=== PATIENT | male | born 1940 | race African-American/Black ===

== ENCOUNTER 2016-12-03 15:14 | Emergency (ER) | payer OTHER ==
[2016-12-03 15:21] VITALS: BP 139/72
[2016-12-03 16:08] LABS: MANUAL DIFF NEEDED? NO
--- NOTE | 2016-12-03 16:11 | PROVIDER DOCUMENTATION ---
HPI-Syncope/Dizziness - General Chief Complaint: Dizziness Stated Complaint: DIZZINESS Time Seen by Provider: 12/03/16 15:25 Source: patient, family Allergies/Adverse Reactions: Patient Allergies Allergy/AdvReac Type Severity Reaction Status Date / Time No Known Allergies Allergy Verified 09/17/15 12:55 Home Medications: Home Medication List Medication Instructions Recorded Confirmed Last Taken Type Megestrol Acetate 40 mg PO DAILY 09/19/15 09/19/15 09/18/15 History 40mg Oxybutynin E.r. [Ditropan Xl] 10 mg PO DAILY 09/19/15 09/19/15 09/18/15 History 10mg Tamsulosin [Flomax] 0.4 mg PO QHS #30 capsule 10/22/15 Unknown Rx Omeprazole 20 mg PO DAILY #30 tablet. 05/06/16 Unknown Rx Meclizine [Antivert] 12.5 mg PO TID #60 tablet 11/07/16 Unknown Rx - History of Present Illness-Syncope/Dizzy Nature of Presenting Problem: 76 y/o AAM with a PMHx of HTN that presents to the ED with a 2-3 month h/o dizziness. Pt reports 4 previous workups for this issue. States that he has intermittent lightheadedness. No alleviating or aggravating factors. Denies any motor or sensory deficits. Recently Seen Here or By Another Healthcare Provider: No Review of Systems - Adult - REVIEW OF SYSTEMS - ADULT Constitutional: reports: no symptoms reported Eyes: reports: no symptoms reported Ears, Nose, Mouth & Throat: reports: no symptoms reported Cardiovascular: reports: no symptoms reported Respiratory: reports: no symptoms reported Gastrointestinal: reports: no symptoms reported Genitourinary: reports: no symptoms reported Musculoskeletal: reports: no symptoms reported Integumentary: reports: no symptoms reported Neurological: reports: dizziness/vertigo Psychiatric: reports: no symptoms reported Endocrine: reports: no symptoms reported Hematologic/Lymphatic: reports: no symptoms reported Allergic/Immunologic: reports: no symptoms reported Past History - Adult - PAST MEDICAL HISTORY-ADULT Review of Records: reports: Old Records Reviewed, Nursing Assessment Review, Medications Reviewed Major Childhood Illnesses: reports: denies history Cardiovascular: reports: HTN Gastrointestinal: reports: GI bleed, polyps Genitourinary: reports: prostate cancer, other (bph) Other Conditions: reports: denies history - PRIOR SURGERIES/PROCEDURES Surgical/Procedure History: reports: hernia repair, orthopedic (extremity) ( foot surgery), other (stomach tumor right great toe bunion removal) - PRIOR HOSPITALIZATIONS Prior Hospitalizations: reports: none - IMMUNIZATION STATUS Childhood Immunizations: See Nurse Assessment Flu Vaccine: See Nurse Assessment - FAMILY HISTORY Family History: reviewed, not pertinent - SOCIAL HISTORY Smoking: cigarettes, less than 1 pack/day Substance Use: alcohol Alcohol Use Frequency: once a week Number of drinks per typical drinking period:: 2 drinks Living Situation: family Physical Exam-General - PHYSICAL EXAM-ADULT Initial Vital Signs Reviewed: Yes - CONSTITUTIONAL General Appearance: appears well, alert, no apparent distress. negative: lethargic, slow to respond - EYES Eyes: PERRL/EOMI, pink conjunctivae. negative: sclera injected, scleral icterus - HEAD, EARS, NOSE, MOUTH & THROAT HENMT: normocephalic/atraumatic, moist mucous membranes, normal ENT inspection. negative: pharyngeal erythema, tonsillar exudate - NECK Neck: non-tender, full range of motion, supple. negative: C-spine tenderness - RESPIRATORY Respiratory: chest non-tender, lungs clear, normal breath sounds. negative: crackles, rales, rhonchi, stridor, wheezing - CARDIOVASCULAR Cardiovascular: normal peripheral pulses, regular rate, rhythm, no murmur - CHEST (BREASTS) Chest/Breast: no tenderness - GASTROINTESTINAL (ABDOMEN) Abdominal Exam: normal bowel sounds, non tender, soft. negative: guarding, rigid, rebound, tenderness - GENITOURINARY Male Genitalia: deferred Rectal Exam: deferred - LYMPHATIC Lymphatic: no adenopathy - MUSCULOSKELETAL Back Exam: negative: no CVA tenderness, muscle spasm Extremity: normal range of motion, non-tender - SKIN Integumentary: normal color, normal turgor, warm/dry - NEUROLOGIC Neurologic: grossly normal, no motor/sensory deficits. negative: facial droop, focal weakness, motor weakness, sensory deficit - PSYCHIATRIC Psych/Mental Status: normal mood/affect, normal thought content, normal thought process, oriented x 3, disoriented x 3 Progress - PLAN OF CARE/RESULTS Progress/Plan/Lab Results: Laboratory Tests 12/03/16 12/03/16 12/03/16 16:02 16:02 16:02 WBC 7.12 RBC 4.01 L Hgb 12.7 L Hct 36.6 L MCV 91.3 MCH 31.7 H MCHC 34.7 RDW Std Deviation 12.7 Plt Count 288 MPV 8.1 Immature Gran % (Auto) 0.1 Neut % (Auto) 54.2 Lymph % (Auto) 30.3 [place] % (Auto) 6.3 Eos % (Auto) 8.8 Baso % (Auto) 0.3 Immature Gran # (Auto) 0.01 Neut # (Auto) 3.85 Lymph # (Auto) 2.16 [place] # (Auto) 0.45 Eos # (Auto) 0.63 Baso # (Auto) 0.02 Sodium 131 L Potassium 3.5 Chloride 99 Carbon Dioxide 16 L Anion Gap 15 BUN 16 Creatinine 1.0 Estimated GFR/1.73 m2 > 60 BUN/Creatinine Ratio 16 Glucose 130 H Calculated Osmolality 266 Calcium 9.4 Total Bilirubin 0.20 AST 13 ALT 10 Alkaline Phosphatase 41 Troponin T < 0.010 Total Protein 7.2 Albumin 4.3 Globulin 3.0 Albumin/Globulin Ratio 1.0 Orders Category Date Time Status CHEST-PORTABLE [RAD] Stat Exams 12/03/16 15:47 Taken HEAD W/O CONTRAST [CT] Stat Exams 12/03/16 16:07 Taken CBC WITH ELECTRONIC DIFF [HEME] Stat Lab 12/03/16 16:02 Completed COMPREHENSIVE METABOLIC PANEL [CHEM] Stat Lab 12/03/16 16:02 Completed TROPONIN T Stat Lab 12/03/16 16:[address] W/POSS RFLX CULT [URINALYSIS] Stat Lab 12/03/16 15:57 Ordered Vital Signs - 24 hr 12/03/16 15:16 Temperature 98 F Pulse Rate 90 Respiratory 18 Rate Blood Pressure 139/72 O2 Sat by Pulse 99 Oximetry - XRAY 1 XRAY Study: Chest Impression: Normal XRAY Interpretation: no acute process - CT/MRI 1 CT Study: Head Impression: Abnormal Comparison with other Films: no changes CT Results: no bleed. chronic ischemic changes. atrophy Departure - Departure Time of Disposition Order: 16:50 DIAGNOSIS: Vertigo Disposition: HOME 01 Certified Medical Emergency: Emergent Condition: Good Additional Instructions: PT TO FOLLOW UP AT PCP FOR POSSIBLE REFERRAL TO NEUROLOGIST. ED Follow Up Instructions: You have been treated by a care provider in the Emergency Department. These instructions are being provided to you so you can have an understanding of how to care for yourself upon discharge. Upon discharge from the Emergency Department, you are responsible for making arrangements for follow-up care by a physician of your choice. Take all prescribed medications as directed. Return to the Emergency Department immediately for any new or worsening symptoms. You may call the Physician Referral phone number at [phone] to obtain a list of Physicians who are taking new patients.
[2016-12-03 16:19] LABS: BASO% 0.3 % (0.0-0.8); EOS# 0.63 X1000 (0.0-0.7); EOS% 8.8 % (0.0-10.0); HEMATOCRIT 36.6 % (42.0-52.0); HEMOGLOBIN 12.7 g/dL (14.0-18.0); IMM GRAN# 0.01 X1000 (0.0-0.04); IMM GRAN% 0.1 % (0.0-0.5); LYMPH# 2.16 X1000 (1.2-3.4); LYMPH% 30.3 % (20.5-51.1); MCH 31.7 PG (27-31); MCHC 34.7 g/dL (33-37); MCV 91.3 FL (81-99); MONO# 0.45 X1000 (0.11-0.59); MONO% 6.3 % (1.7-9.3); MPV 8.1 FL (7.4-10.4); NEUT% 54.2 % (42.2-75.2); PLT 288 X1000 (130-400); RBC 4.01 XMIL (4.7-6.1)
[2016-12-03 16:28] LABS: AGAP 15; ALBUMIN 4.3 g/dL (3.5-5.0); ALKALINE PHOSPHATASE 41 U/L (32-122); BUN 16 mg/dL (8-22); CALCIUM 9.4 mg/dL (8.8-10.2); CHLORIDE 99 mmol/L (98-107); COSMO 266; GOT 13 U/L (10-34); GPT 10 U/L (10-44); POTASSIUM 3.5 mmol/L (3.5-5.1); SODIUM 131 mmol/L (136-145); TCO2 16 mmol/L (25-35); TOTAL PROTEIN 7.2 g/dL (6.3-8.3)
--- NOTE | 2016-12-03 16:55 | Diag Imaging Result Document ---
PROCEDURE NAME: CHEST-PORTABLE - 12/03/2016 CHEST, SINGLE VIEW: COMPARISON: 08/08/2016. FINDINGS: The lungs are well expanded. The heart is not enlarged. The vessels are not distended. No pneumonia. No pleural effusions identified. IMPRESSION: Negative chest.
--- NOTE | 2016-12-03 16:58 | Diag Imaging Result Document ---
PROCEDURE NAME: HEAD W/O CONTRAST - 12/03/2016 CT BRAIN WITHOUT CONTRAST: COMPARISON: 04/14/2016. FINDINGS: No parenchymal hemorrhage. No epidural or subdural hematoma. No subarachnoid hemorrhage. There is atrophy with mild chronic microvascular ischemic changes. I do not identify a mass on this noncontrasted study. No hydrocephalus. No sinus opacification. IMPRESSION: 1. No hemorrhage. 2. Atrophy with mild chronic microvascular ischemic changes. A preliminary report was given at 4:33 p.m..
== END 2016-12-03 16:58 | disposition home or self-care (01) ==
LOC: P.ED 15:14
DX: R42 Dizziness and giddiness (principal); R94.09 Abnormal results of other function studies of central nervous system; I10 Essential (primary) hypertension; F17.210 Nicotine dependence, cigarettes, uncomplicated; Z79.899 Other long term (current) drug therapy; Z85.46 Personal history of malignant neoplasm of prostate; Z87.19 Personal history of other diseases of the digestive system
CPT/HCPCS: 70450; 71010; 80053; 84153; 84484; 85025

== ENCOUNTER 2017-03-16 14:58 | Inpatient (IN) ==
[2017-03-16] MEDS ORDERED: PROTONIX IV ONE (15:24)
[2017-03-16] MEDS ORDERED: SODIUM CHLORIDE 0.9% INJ ONE (15:24)
[2017-03-16] MEDS ORDERED: NS 1,000 ML IV ONE (15:24)
[2017-03-16 15:34] LABS: MANUAL DIFF NEEDED? NO
[2017-03-16 16:11] LABS: AGAP 12; ALBUMIN 4.2 g/dL (3.5-5.0); ALKALINE PHOSPHATASE 42 U/L (32-122); AMYLASE 72 U/L (20-200); BUN 11 mg/dL (8-22); CALCIUM 8.8 mg/dL (8.8-10.2); CHLORIDE 103 mmol/L (98-107); COSMO 276; GOT 12 U/L (10-34); GPT 8 U/L (10-44); LIPASE 45 U/L (13-60); POTASSIUM 3.7 mmol/L (3.5-5.1); SODIUM 138 mmol/L (136-145); TCO2 23 mmol/L (25-35); TOTAL PROTEIN 6.8 g/dL (6.3-8.3)
[2017-03-16 16:21] LABS: OCCULT BLOOD 1 POSITIVE (NEGATIVE)
--- NOTE | 2017-03-16 16:22 | EKG Report ---
Test Performed on : 03/16/2017 4:18:10 PM Test Reason : Dizziness Blood Pressure : / mmHG Vent. Rate : 068 BPM Atrial Rate : 068 BPM P-R Int : 168 ms QRS Dur : 066 ms QT Int : 418 ms P-R-T Axes : 053 042 -68 degrees QTc Int : 444 ms Normal sinus rhythm. Voltage criteria for left ventricular hypertrophy T wave abnormality, consider inferior ischemia Abnormal ECG When compared with ECG of 08-AUG-2016 14:31, Nonspecific T wave abnormality has replaced inverted T waves in Lateral leads Unconfirmed Result
[2017-03-16 16:26] LABS: BILIRUBIN URINE NEGATIVE (NEGATIVE); BLOOD URINE 1+ (NEGATIVE); CLARITY CLEAR (CLEAR); COLOR YELLOW; GLUCOSE URINE NEGATIVE (NEGATIVE); LEUKOCYTES URINE NEGATIVE (NEGATIVE); NITRITE URINE NEGATIVE (NEGATIVE); PH URINE 6.5; PROTEIN URINE TRACE mg/dL (NEGATIVE); SP GRAVITY URINE 1.015; UROBILINOGEN URINE 1+(1 mg/dL)
[2017-03-16 16:27] LABS: URINE CAST NONE SEEN /LPF; URINE CRYSTAL NONE SEEN /HPF; URINE EPITHELIAL CELLS >10 /HPF (<10); URINE RBC <10 /HPF (<10); URINE SOURCE CLEAN CATCH
[2017-03-16 16:33] LABS: INR 0.99 (0.86-1.15); PROTIME 13.4 Seconds (12.1-15.5)
[2017-03-16 16:37] LABS: URINE CULTURE PL NEEDED? NO; URINE WBC <10 /HPF (<10)
[2017-03-16 17:24] LABS: BASO% 0.5 % (0.0-0.8); EOS# 0.51 X1000 (0.0-0.7); EOS% 7.9 % (0.0-10.0); HEMATOCRIT 35.3 % (42.0-52.0); HEMOGLOBIN 11.6 g/dL (14.0-18.0); IMM GRAN# 0.01 X1000 (0.0-0.04); IMM GRAN% 0.2 % (0.0-0.5); LYMPH# 1.33 X1000 (1.2-3.4); LYMPH% 20.6 % (20.5-51.1); MCH 32.7 PG (27-31); MCHC 32.9 g/dL (33-37); MCV 99.4 FL (81-99); MONO# 0.53 X1000 (0.11-0.59); MONO% 8.2 % (1.7-9.3); MPV 8.6 FL (7.4-10.4); NEUT% 62.6 % (42.2-75.2); PLT 330 X1000 (130-400); RBC 3.55 XMIL (4.7-6.1)
--- NOTE | 2017-03-16 17:34 | PROVIDER DOCUMENTATION ---
This chart was entered by Shannan Carreno Scribe, acting as scribe for Iona Moran MD. HPI-General Adult - General Chief Complaint: Dizziness Stated Complaint: "WATER ON HEAD,BLOOD IN STOOL" Time Seen by Provider: 03/16/17 15:23 Source: patient Allergies/Adverse Reactions: Patient Allergies Allergy/AdvReac Type Severity Reaction Status Date / Time No Known Allergies Allergy Verified 09/17/15 12:55 Home Medications: Home Medication List Medication Instructions Recorded Confirmed Last Taken Type Megestrol Acetate 40 mg PO DAILY 09/19/15 09/19/15 09/18/15 History 40mg Oxybutynin E.r. [Ditropan Xl] 10 mg PO DAILY 09/19/15 09/19/15 09/18/15 History 10mg Tamsulosin [Flomax] 0.4 mg PO QHS #30 capsule 10/22/15 Unknown Rx Omeprazole 20 mg PO DAILY #30 tablet. 05/06/16 Unknown Rx Meclizine [Antivert] 12.5 mg PO TID #60 tablet 11/07/16 Unknown Rx - History of Present Illness -Gen Adult Nature of Presenting Problems: 76 yo M presents to the ER with complaint of dizziness and bright red blood in stool this morning. Denies being in any pain. States he took an iron pill yesterday. States he has been dizzy for about 6 months. Onset/Duration: reports: this morning Associated Symptoms: reports: dizziness. denies: diarrhea, nausea, weakness Review of Systems - Adult - REVIEW OF SYSTEMS - ADULT Constitutional: denies: chills, fever Eyes: reports: no symptoms reported Ears, Nose, Mouth & Throat: reports: no symptoms reported Cardiovascular: denies: chest pain, palpitations Respiratory: denies: cough, shortness of breath Gastrointestinal: reports: rectal bleeding. denies: diarrhea, nausea, vomiting Genitourinary: reports: no symptoms reported Musculoskeletal: reports: no symptoms reported Integumentary: reports: no symptoms reported Neurological: reports: dizziness/vertigo. denies: headache/migraines Psychiatric: reports: no symptoms reported Endocrine: reports: no symptoms reported Hematologic/Lymphatic: reports: no symptoms reported Allergic/Immunologic: reports: no symptoms reported All Other Systems: Reviewed and Negative Past History - Adult - PAST MEDICAL HISTORY-ADULT Review of Records: reports: Nursing Assessment Review, Medications Reviewed Cardiovascular: reports: HTN Gastrointestinal: reports: GI bleed, polyps Genitourinary: reports: prostate cancer, other (bph) - PRIOR SURGERIES/PROCEDURES Surgical/Procedure History: reports: hernia repair, orthopedic (extremity) ( foot surgery), other (stomach tumor right great toe bunion removal) - PRIOR HOSPITALIZATIONS Prior Hospitalizations: reports: none - IMMUNIZATION STATUS Childhood Immunizations: See Nurse Assessment Flu Vaccine: See Nurse Assessment Physical Exam-General - PHYSICAL EXAM-ADULT Initial Vital Signs Reviewed: Yes - CONSTITUTIONAL General Appearance: alert, no apparent distress - EYES Eyes: PERRL/EOMI, pink conjunctivae - HEAD, EARS, NOSE, MOUTH & THROAT HENMT: normocephalic/atraumatic, normal ENT inspection - NECK Neck: supple, normal inspection - RESPIRATORY Respiratory: no respiratory distress, no accessory muscle use - CARDIOVASCULAR Cardiovascular: normal peripheral pulses, regular rate, rhythm - GASTROINTESTINAL (ABDOMEN) Abdominal Exam: normal bowel sounds, non tender, soft - GENITOURINARY Rectal Exam: normal rectal tone, other (maroon colored blood) - LYMPHATIC Lymphatic: no adenopathy. negative: axilla node tender - MUSCULOSKELETAL Back Exam: no CVA tenderness, no vertebral tenderness Extremity: normal gait, normal inspection - SKIN Integumentary: normal color, warm/dry - NEUROLOGIC Neurologic: grossly normal, no motor/sensory deficits - PSYCHIATRIC Psych/Mental Status: normal mood/affect, normal thought content, normal thought process, oriented x 3 Progress - PLAN OF CARE/RESULTS Progress/Plan/Lab Results: Vital Signs - 8 hr 03/16/17 15:03 03/16/17 15:17 Temperature 98.4 F Pulse Rate 96 H Pulse Rate [Sitting] 84 Pulse Rate [Standing] 90 Pulse Rate [Supine] 80 Respiratory Rate 18 Blood Pressure 173/97 Blood Pressure [Sitting] 157/104 Blood Pressure [Standing] 176/114 Blood Pressure [Supine] 173/104 O2 Sat by Pulse Oximetry 99 Orders Category Date Time Status Saline Loc DIRECTED Care 03/16/17 15:24 Active NPO Diet 03/16/17 15:24 Active HEAD W/WO CONTRAST [CT] Stat Exams 03/16/17 15:24 Ordered AMYLASE [CHEM] Stat Lab 03/16/17 15:24 Ordered CBC WITH ELECTRONIC DIFF [HEME] Stat Lab 03/16/17 15:24 Ordered COMPREHENSIVE METABOLIC PANEL [CHEM] Stat Lab 03/16/17 15:24 Ordered LIPASE [CHEM] Stat Lab 03/16/17 15:24 Ordered OCCULT BLOOD SCREEN STOOL PL Stat Lab 03/16/17 15:24 Uncollected PRO B-NATRIURETIC PEPTIDE Stat Lab 03/16/17 15:[address]IME WITH INR [address] [COAG] Stat Lab 03/16/17 15:[address] [COAG] Stat Lab 03/16/17 15:24 Ordered TROPONIN T Stat Lab 03/16/17 15:[address] W/POSS RFLX CULT [URINALYSIS] Stat Lab 03/16/17 15:24 Uncollected 0.9% Sodium Chloride Inj [Ns] 1,000 ml Med 03/16/17 15:24 Active IV 999 mls/hr Pantoprazole [Protonix] Med 03/16/17 15:24 Discontinued 40 mg IV NOW ONE Sodium Chloride 0.9% Med 03/16/17 15:24 Discontinued 10 ml INJ NOW ONE EKG [EKG] Stat Ther 03/16/17 15:24 Ordered Result Diagrams: 03/16/17 17:20 03/16/17 15:15 - EKG 1 Time of EKG reading by physician:: 16:18 EKG Read and Signed by:: Iona Moran EKG Interpretation (*Must complete 3 of following elements*): Abnormal Rate: 68 Rhythm: normal sinus rhythm [place]: normal QRS: LVH (voltage criteria) [place] Interval: normal ST Wave: normal Comments: t wave abnormality, consider inferior ischemia - CONSULTS/PCP/HOSPITALIST Notification #1 *Consult/PCP/Hospitalist*: Dr. Damir aragon Time Discussed: 17:32 Reason/Comments: Suggested to admit to [facility]. [facility] hospitalist called. Consult Disposition: Admit - CHANGE OF SHIFT REPORT (ED Provider) Report Given and Care Transferred to:: Dr. Marcum Time of Transfer: 18:00 Items Pending: Physician Consult/Arrival, Other (Pending dispo - admit to [facility]) Departure - Departure Date of Disposition Decision: 03/16/17 Time of Disposition Decision: 17:33 DIAGNOSIS: Lower GI bleed Disposition: ADMITTED INPATIENT 09 Certified Medical Emergency: Emergent Condition: Stable Referrals and Follow-Ups: Jay Weiss MD [Primary Care Provider] - - Critical Care Note This patient required my direct & personal management of CC.: No This chart was documented by the indicated scribe, (Shannan Carreno Scribe) and accurately reflects the services I performed and decisions made by me, Iona Moran MD, as attested by the provider's signature.
[2017-03-16] MEDS ORDERED: ZOFRAN IV PRN (20:13)
[2017-03-16] MEDS ORDERED: TYLENOL PO PRN (20:13)
[2017-03-16 21:27] LABS: RETIC% 1.89 % (0.8-2.1)
[2017-03-16 21:28] LABS: HEMATOCRIT 32.9 % (42.0-52.0); HEMOGLOBIN 10.7 g/dL (14.0-18.0)
--- NOTE | 2017-03-16 21:39 | HISTORY AND PHYSICAL ---
PRIMARY CARE PHYSICIAN: Jay Weiss MD. REASON FOR ADMISSION: Hematochezia. HISTORY OF PRESENT ILLNESS: Matthew Dennison is a 76-year-old man with a past medical history of diverticulosis, prostate cancer, hypertension who is complaining of a 2-3 week history of postural dizziness. He also says he lost about 10 pounds in the last 1 year which is unintentional. He comes in today primarily because he had 2 episodes of bright red hematochezia without any clots. No antecedent or subsequent melanotic stools were noted. No nausea, vomiting, abdominal pain. He says his postural lightheadedness got worse and he got concerned and went to [facility] to be evaluated. While he was blood work was drawn and they realized that patient was a little symptomatic, i.e. orthostatic and decided to get him transferred to our facility for GI evaluation. The patient denies any fever, chills or cardiorespiratory complaints other than a chronic dry cough which occurs at night. He denies any leg swelling, PND or orthopnea. He denies any genitourinary complaints except for infrequent urinary hesitancy. No hematuria. No bleeding from any orifice. No dysuria. No focal neurological complaints. REVIEW OF SYSTEMS: Twelve systems is negative except positive findings as per HPI. He denies any use of NSAIDs except for baby aspirin which he takes per his physician. ALLERGIES: No known drug allergies. HOME MEDICATIONS: Have not been reconciled but the ones on file show he takes meclizine 12.5 mg p.r.n., Megace 40 mg daily, omeprazole 20 mg daily, Ditropan 10 mg daily, Flomax 0.4 mg daily. FAMILY HISTORY: No history of GI issues in the family. Only notable finding is liver disease. No diabetes or heart disease. SOCIAL HISTORY: He smokes half a pack a day. He drinks whisky maybe a shot or 2 once every couple of weeks. No illicit drug use. He is . PAST SURGICAL HISTORY: He had a ventral hernia repair and lipoma excised from his left hip. DIAGNOSTIC DATA: 1. CT scan of the head and abdomen are still pending. 2. EKG done shows a probable anteroseptal infarct with flipped T-waves in the inferior leads. No prior EKG for review to compare with. LAB WORK: PT, PTT is normal. Fecal occult blood was positive. His white count is 6,000. Hemoglobin and hematocrit 11 and 35. Platelets 330,000. BUN 11, creatinine 1.0, glucose 114, troponins negative, proBNP 361, amylase and lipase normal. Urinalysis is essentially unremarkable. PHYSICAL EXAMINATION: VITAL SIGNS: Blood pressure is 164/97, heart rate 72, respirations 18, temperature 98.4 degrees, O2 saturation is 100% on room air. GENERAL: He is a pleasant, well-nourished, elderly, man who is not in acute distress. He is alert and oriented x3. Normal mood and affect. HEENT: Normocephalic, atraumatic. PERRL, EOMI. Anicteric, not pale. ENT examination is grossly normal. NECK: Supple. No JVD, carotid bruit or thyromegaly. CHEST: Clear to auscultation. Air entry equal in both lung cesar. CARDIAC: First and second heart sounds heard. No murmurs, gallops, or rubs. Regular.. ABDOMEN: Slightly protuberant, soft, nontender. No organomegaly. Bowel sounds hypoactive. RECTAL EXAMINATION: Deferred at this time. EXTREMITIES: No edema, clubbing or cyanosis. Pulses distally intact in all extremities with good volume. NEUROLOGIC EXAMINATION: No focal deficits. SKIN: Intact. No breakdown, lesions or erythema except for a small 2 cm lipoma on the left hip. MUSCULOSKELETAL EXAMINATION: Grossly normal. ASSESSMENT: 1. Gastrointestinal bleed, probably lower gastrointestinal bleed ? diverticular. 2. Anemia ? hemorrhagic versus anemia of chronic inflammation. 3. Hypertension new onset. 4. Benign prostatic hypertrophy. 5. Tobacco use. 6. Abnormal electrocardiogram. Query significance. 7. History of prostate cancer. 8. Diverticulosis. PLAN: 1. At this time we will continue IV fluid resuscitation. Check hemoglobin and hematocrit serially q.6 hours and we will be notified if hematocrit drops below 26. Type and screen in anticipation of severe GI bleeding. 2. Consult Dr. Subramanian who is the patient's electrophonic engineer. We will notify him this evening to see if he wants the patient to be prepped for colonoscopy. 3. Repeat EKG and troponin to rule out any acute coronary event and if these are negative, patient will need to schedule outpatient cardiac evaluation. 4. Regarding patient's blood pressure, medication was switched from Flomax to Cardura to address his prostatic problems and his hypertension while ordering a PSA. 5. Smoking cessation was reiterated and start patient on a NicoDerm patch. 6. PPI to be started empirically. I suspect this could be more of a lower GI bleed. cc: Saturnino Guzman MD
[2017-03-16] MEDS: NS 1,000 ML IV SCH (21:55)
[2017-03-16] MEDS: PROTONIX IV SCH (21:55)
[2017-03-16] MEDS: NICODERM PATCH TD SCH (21:55)
[2017-03-16] MEDS: CARDURA PO SCH (21:55)
[2017-03-16] MEDS: SODIUM CHLORIDE 0.9% INJ SCH (21:55)
[2017-03-16 22:03] LABS: PSA SCREEN 0.03 ng/mL (0.00-6.22)
[2017-03-16] MEDS ORDERED: GOLYTELY PO ONE (22:03)
[2017-03-17 02:40] LABS: HEMOGLOBIN 10.2 g/dL (14.0-18.0)
--- NOTE | 2017-03-17 05:28 | EKG Report ---
Test Performed on : 03/16/2017 10:39:38 PM Test Reason : abn ekg Blood Pressure : / mmHG Vent. Rate : 062 BPM Atrial Rate : 062 BPM P-R Int : 176 ms QRS Dur : 064 ms QT Int : 388 ms P-R-T Axes : 012 036 048 degrees QTc Int : 393 ms Normal sinus rhythm. T wave abnormality, consider lateral ischemia Abnormal ECG When compared with ECG of 16-MAR-2017 16:18, (Unconfirmed) Nonspecific T wave abnormality has replaced inverted T waves in Inferior leads Inverted T waves have replaced nonspecific T wave abnormality in Lateral leads Confirmed by Javier LANGLEY, David Tejeda ([id number]) on 03/21/2017 12:36:16 PM
[2017-03-17 06:44] LABS: MANUAL DIFF NEEDED? NO
[2017-03-17 06:53] LABS: BASO% 0.2 % (0.0-0.8); EOS# 0.55 X1000 (0.0-0.7); EOS% 9.3 % (0.0-10.0); HEMATOCRIT 30.7 % (42.0-52.0); HEMOGLOBIN 10.1 g/dL (14.0-18.0); LYMPH% 21.9 % (20.5-51.1); MCH 32.7 PG (27-31); MCHC 32.9 g/dL (33-37); MCV 99.4 FL (81-99); MONO# 0.42 X1000 (0.11-0.59); MONO% 7.1 % (1.7-9.3); MPV 8.3 FL (7.4-10.4); NEUT% 61.5 % (42.2-75.2); PLT 282 X1000 (130-400); RBC 3.09 XMIL (4.7-6.1)
[2017-03-17 07:15] LABS: AGAP 12; BUN 6 mg/dL (8-22); CHLORIDE 108 mmol/L (98-107); COSMO 277; POTASSIUM 3.8 mmol/L (3.5-5.1); SODIUM 140 mmol/L (136-145); TCO2 20 mmol/L (25-35)
--- NOTE | 2017-03-17 07:31 | Diag Imaging Result Doc PS360 ---
EXAM: HEAD W/O CONTRAST HISTORY: Dizziness TECHNIQUE: CT of the head without contrast with dose reduction (clarity.) COMMENT: There is generalized cerebral atrophy. There is a calcification in the left globus pallidus. No evidence of mass effect bleed or abnormal extra-axial fluid collection is present. Compared to the previous study of 12/03/2016 there has been no significant change in the appearance of the brain. IMPRESSION: Atrophy and chronic microvascular changes. No evidence of acute disease. Electronically signed by Richie Gonzalez 03/17/2017 7:29 AM
--- NOTE | 2017-03-17 07:38 | Diag Imaging Result Doc PS360 ---
EXAM: CT ABD/PELVIS W/ IV CONT ONLY HISTORY: Rectal bleeding TECHNIQUE: CT of the abdomen with intravenous contrast and dose reduction (clarity.) COMMENT: The current study is compared with that of 05/11/2015. There are some fibrotic changes in the lung bases. There is a cyst and a granuloma in the dome of the right hepatic lobe. Small subcentimeter cysts are also seen elsewhere in the liver. Some of these were better seen on the previous study. There are numerous cysts in both kidneys the largest of which is present on the right measuring over 8.7 cm. There are atherosclerotic calcifications in the aorta. There is slight dilatation of the infrarenal abdominal aorta to a maximum dimension of 2.6 cm. There is no evidence of appendicitis. There is marked diverticulosis of the colon particularly the cecum and descending colon. There is apparently a diverticulum of the distal ileum just before the ileocecal valve which contains a fecalith. This was also demonstrated on the previous study. There is a left adrenal nodule measuring 2.8 cm which has not changed significantly in size or appearance since the previous study. There is no evidence of significant adenopathy or bowel obstruction. CT of the pelvis with intravenous contrast: There is diverticulosis throughout the sigmoid colon. There is no definite evidence of active diverticulitis. There is no evidence of free fluid. The urinary bladder is not distended. No significant adenopathy is present. The regional skeleton is stable in appearance. IMPRESSION: Diverticulosis coli and ilei. Left adrenal adenoma. No evidence of acute disease. Electronically signed by Richie Gonzalez 03/17/2017 7:36 AM
[2017-03-17] MEDS: NICODERM PATCH TD SCH (08:39)
[2017-03-17] MEDS: NS 1,000 ML IV SCH ×2 (11:50)
--- NOTE | 2017-03-17 14:19 | PROGRESS NOTE ---
DATE: 03/17/2017 SUBJECTIVE: Mr. Dennison was transferred yesterday from [place] to [facility] and is here for GI evaluation. According to him, he was having some dark stools, but since yesterday he has not had any more. He has had a total of 2 bowel movements today and they had been completely clear. OBJECTIVE: Vital signs: Blood pressure is 149/75, pulse of 71, respirations 18 , temperature 98.4 degrees. General: Mr. Dennison is a 76-year-old male. He is in bed, not in any distress. HEENT: Mucosa pink and moist. Anicteric. Acyanotic. Neck: Supple. Chest: Good air entry bilateral. No crepitations. No rhonchi. Cardiovascular: Regular rate and rhythm. No murmurs, no rubs. No gallops. Abdomen: Soft, nontender. Extremities: No pedal edema. Central Nervous System: Patient is alert and oriented x4. There is no focal neurological deficit. IMAGING STUDIES: A CT scan of the abdomen and pelvis, which was done yesterday , shows diverticulosis coli and Left adrenal adenoma. No evidence of acute disease. ASSESSMENT: 1. Gastrointestinal bleed. 2. Diverticulosis, likely the cause of the gastrointestinal bleed. 3. Iron deficiency, likely from chronic gastrointestinal blood loss. 4. Hypertension. 5. Tobacco abuse. 6. History of prostate cancer. So, today Mr. Dennison is doing fine. Hemoglobin and hematocrit are pretty stable. I spoke with Dr. Subramanian today and he plans to do EGD/colonoscopy tomorrow. Hopefully, after that, we may be able to discharge the patient. We will keep the patient n.p.o. until he sees the Gastroenterology physician. cc: Livan Burgess MD [facility]
--- NOTE | 2017-03-17 15:07 | CONSULTATION ---
DATE OF CONSULTATION: 03/17/2017 PRIMARY CARE DOCTOR: Dr. Weiss. REASON FOR CONSULTATION: Rectal bleeding and anemia. HISTORY OF PRESENT ILLNESS: Mr. Dennison is a 74-year-old male who was admitted last night for hematochezia. According to the patient his symptoms started yesterday when he noted 2 episodes of bright red blood in the stools. He did not visualize any clots. He did have some postural lightheadedness and went to the [place] [facility]. He was found to be orthostatic and diagnosed with GI bleed and was transferred to [facility]. Since being in the hospital his rectal bleeding has stopped. His hemoglobin and hematocrit dropped to 30%. He is not requiring blood transfusion. Denies any nausea, vomiting, vomiting blood. He has history of colonoscopy in September 2015. At that time, he was found to have 3 colon polyps and diverticulosis in the ascending and transverse colon and severe diverticulosis in the left colon. He has had a previous history of GI bleeding and diverticula bleeding in the past. The patient denies any history of NSAIDs. He has been eating corn in the recent past which could have triggered diverticular bleeding. PAST MEDICAL HISTORY: 1. Colon polyps. 2. Colon diverticular hemorrhage. 3. Diverticulosis. 4. Prostate cancer. 5. Hypertension. 6. Reflux disease. 7. Weight loss. 8. Benign hypertrophy of prostate. 9. History of prostate cancer. ALLERGIES: No known drug allergies. MEDICATIONS AT HOME: Include meclizine, Megace, omeprazole 20 mg daily, Ditropan 10 mg every day , Flomax 0.4 mg a day. FAMILY HISTORY: Noncontributory. SOCIAL HISTORY: He smokes half a pack a day. He drinks whiskey maybe a shot or 2 once every couple of weeks. No history of illicit drug use. He is . His is very supportive and is at the bedside. His granddaughter and a son also present at bedside. PAST SURGICAL HISTORY: EGD, colonoscopy in September 2015. At that time, he was found with reflux disease and diverticulosis and colon polyps. Ventral hernia repair. Lipoma excision from the left hip. REVIEW OF SYSTEMS: Denies any fevers, rigors, chills, chest pain, shortness of breath, dyspnea at rest. Denies any genitourinary or neurologic complaints. Denies any history of nausea, vomiting, vomiting blood or melena. Complained of painless rectal bleeding started yesterday which has stopped spontaneously. MEDICATIONS IN THE HOSPITAL INCLUDE: Tylenol, doxazosin, NicoDerm patch, IV fluids 150 mL/h, Zofran, Protonix IV once daily. He is currently on clear liquid diet. PHYSICAL EXAM: 97.3, pulse rate of 61, respiratory 20, blood pressure 118/56, saturating 99% on room air. Body weight of 196 pounds 1.6 pounds. BMI 29 kg/m2.General Appearance: Moderately built, moderately nourished, lying in bed, in no acute distress. HEENT: Mild pallor. No icterus. Pupils equal, react to light. Neck: Supple. Chest: Decreased. Cardiac: Regular rate and rhythm. No murmur. Abdomen: Soft, nontender, nondistended. Bowel sounds. No rebound. Extremities: No cyanosis, clubbing, edema. Neurologic: He is alert, awake, oriented. LABS: His hemoglobin and hematocrit is 10.1 and 30.7, white count 5.9, platelet count of 282,000. MCV of 99.4, INR 0.99. PTT of 13.4, PTT of 32. Sodium 140, potassium 3.8, chloride 100, bicarb 20, anion gap 12, BUN of 6, creatinine 0.8, glucose of 100. Calcium is 8. Iron level of 47, ferritin of 38, troponin less than 0.01. Folate of 17. B12 of 311. AST 12, ALT 8, alkaline phosphatase 42, total protein 6.8, albumin of 4.2, amylase of 72, lipase of 45. His urinalysis showing trace protein, 1+ blood, and stool for occult blood is positive. He had abdominal pelvic CT scan done on 03/16/2017 showed diverticulosis coli and ilei. Left adrenal adenoma. No evidence of acute disease. Left adrenal nodule measuring 2.8 cm. Fibrotic changes in the lung bases, cyst and granulomata in the dome of the right hepatic lobe. Numerous cysts in both kidneys, the largest 1 measuring 8.7 cm in the right kidney. Slight dilation of the infrarenal abdominal aorta maximum dimension of 2.6 cm. No evidence of appendicitis. Diverticulum of the distal ileum just before the ileocecal valve which contained the fecalith. Marked diverticulosis of the colon particularly the cecum and descending colon. IMPRESSION AND PLAN: 1. Painless rectal bleeding starting yesterday. Likely diverticular bleeding. 2. Anemia. 3. History of prostate cancer. 4. Kidney cyst on imaging. 5. Left adrenal nodule measuring 2.8 cm. 6. Infrarenal abdominal aortic aneurysm 2.6. RECOMMENDATIONS: 1. We are going to watch patient's CBC. Will check in the morning. We will type and cross, transfuse hematocrit more than 27%. The patient will be on clear liquid diet today. He will be made NPO past midnight. He was scheduled for colonoscopy tomorrow. The procedure of colonoscopy discussed with the patient and explained along with risks, benefits, indications alternatives.Patient acknowledges understanding and agrees to proceed. 2. The patient also instructed to avoid any corn, nuts and seeds in diet. 3. Keep patient on GI prophylaxis with PPIs. 4. Further recommendations pending the hospital course. cc: MD Livan Gan MD Dr. Putman MTDD
[2017-03-17] MEDS ORDERED: NS 1,000 ML IV SCH (16:08)
[2017-03-17] MEDS ORDERED: VENOFER 300 MG in NS 250 ML IV ONE (16:09)
[2017-03-17] MEDS: CARDURA PO SCH (20:19)
[2017-03-17] MEDS: PROTONIX IV SCH (20:20)
[2017-03-17] MEDS: SODIUM CHLORIDE 0.9% INJ SCH (20:20)
[2017-03-18 07:02] LABS: MANUAL DIFF NEEDED? NO
[2017-03-18 07:11] LABS: BASO% 0.4 % (0.0-0.8); EOS# 0.45 X1000 (0.0-0.7); EOS% 8.8 % (0.0-10.0); HEMATOCRIT 33.1 % (42.0-52.0); HEMOGLOBIN 10.8 g/dL (14.0-18.0); LYMPH# 1.29 X1000 (1.2-3.4); LYMPH% 25.3 % (20.5-51.1); MCH 32.2 PG (27-31); MCHC 32.6 g/dL (33-37); MCV 98.8 FL (81-99); MONO# 0.37 X1000 (0.11-0.59); MONO% 7.3 % (1.7-9.3); MPV 8.6 FL (7.4-10.4); NEUT% 58.2 % (42.2-75.2); PLT 288 X1000 (130-400); RBC 3.35 XMIL (4.7-6.1)
[2017-03-18 07:41] LABS: AGAP 15; BUN 4 mg/dL (8-22); CALCIUM 8.7 mg/dL (8.8-10.2); CHLORIDE 108 mmol/L (98-107); COSMO 281; POTASSIUM 3.7 mmol/L (3.5-5.1); SODIUM 142 mmol/L (136-145); TCO2 19 mmol/L (25-35)
[2017-03-18] MEDS ORDERED: VALSARTAN PO SCH (10:15)
[2017-03-18] MEDS ORDERED: AMLODIPINE PO SCH (10:15)
[2017-03-18] MEDS: NICODERM PATCH TD SCH (10:28)
[2017-03-18] MEDS ORDERED: DIOVAN PO SCH (10:30)
[2017-03-18] MEDS ORDERED: NORVASC PO SCH (10:30)
[2017-03-18] MEDS ORDERED: DIPRIVAN 1% ONE (10:41)
--- NOTE | 2017-03-18 10:47 | OPERATIVE NOTE ---
PROCEDURE DATE: 03/18/2017 REQUESTING PHYSICIAN: Dr. Burgess, the hospitalist. TITLE OF PROCEDURE: Colonoscopy with snare polypectomy. PREOPERATIVE DIAGNOSES: 1. Rectal bleeding. 2. Anemia. 3. History of constipation. 4. History of colon polyps. 5. History of severe diverticulosis. 6. Painless rectal bleeding that started 2 days ago. 7. Chronic Smoker. POSTOPERATIVE DIAGNOSES: 1. Severe diverticulosis starting at the cecum, all the way up to 30 cm of the anal verge. There was old blood in the colon which was lavaged. This is likely diverticular bleeding. The bowel prep was fair. Lots of stool seen throughout the colon. There was polyps visualized in the colon but we were only able to take 1 polyp out which was measuring 1 cm in the transverse colon, with snare polypectomy. The rest of the polyps were hard to visualize and remove safely because of the fair bowel prep. 2. Internal hemorrhoids grade II on retroflexion. ESTIMATED BLOOD LOSS: Minimal. COMPLICATIONS: None. ANESTHESIA: Monitored anesthesia care by anesthesiologist. SPECIMENS: Transverse colon polyp. DESCRIPTION OF PROCEDURE: After obtaining informed consent from the patient and explaining the risks, benefits, indications, and alternatives of the procedure. The patient was prepared for a colonoscopy. The risks of the procedure including infection, bleeding, pain, trauma to the surrounding structures, perforation explained to the patient among others and he acknowledged understanding and agreed to proceed with the procedure. The patient was brought to the OR. He was turned to the left lateral position. Rectal exam was performed which was normal. No masses felt. No blood on the examining finger. The colonoscope was introduced and was traversed all the way to the cecum. Cecum was identified using landmarks, ileocecal valve, and appendiceal orifice. The bowel prep was fair. There was lots of thick stool throughout the colon. There was evidence of old blood in the colon which was lavaged. This is likely diverticular source. I did not visualize any cancers. There was evidence of some small scattered polyps throughout the colon, more so in the transverse colon, hepatic flexure, and the descending and sigmoid colon. One of the polyps was 1 cm in the transverse colon which was removed with snare cautery polypectomy. We attempted to the polyps but the bowel prep was fair so we could not visualize them completely in order to safely remove them. Retroflexion in the rectum revealed internal hemorrhoids. The air was withdrawn. The patient tolerated the procedure and was monitored in the OR in stable condition. I discussed the findings with the patient and on waking up and all questions were answered. RECOMMENDATIONS: 1. The patient will be on full liquid diet for 4 days, followed by a soft diet for 4 days. 2. The patient will avoid corn, nuts, and seeds in diet. 3. The patient will be on MiraLAX 34 g dissolved in 16 ounce of water at bedtime. 4. The patient will be on Iron C b.i.d. for 3 months. 5. The patient will avoid constipation. 6. The patient will need a colonoscopy in 6-12 months to remove the polyps with 2-day prep. 7. Further recommendations pending the hospital course. cc: MD Nickolas Gan MD Raphael K. Quansah, MD MTDD
[2017-03-18 11:44] VITALS: BP 185/85
[2017-03-18] MEDS ORDERED: ANTIVERT PO SCH (13:00)
--- NOTE | 2017-03-18 16:02 | DISCHARGE SUMMARY ---
ADMISSION DATE: 03/16/2017 DISCHARGE DATE: 03/18/2017 CONSULTATIONS: Gio Subramanian MD with Gastroenterology. PERTINENT PROCEDURES: 1. Head CT showed atrophy and chronic microvascular changes. No evidence of acute disease. 2. Abdomen and pelvis CT showed diverticulosis coli and left adrenal adenoma. No evidence of acute disease. 3. Colonoscopy with snare polypectomy performed by Dr. Subramanian. DISCHARGE DIAGNOSES: 1. Severe diverticulosis status post colonoscopy with a snare polypectomy. The diverticulosis started at the cecum all the way up to the anal verge. There was old blood in the colon that was lavaged, likely due to diverticular bleeding. A 1 cm polyp in the transverse colon with snare polypectomy. Dr. Subramanian recommends full liquid diet for 4 days then followed by a soft diet for 4 days. Avoid corn, nuts, seeds. Continue on MiraLAX 34 g dissolved in 16 ounces of water at bedtime. Icar-C b.i.d. for 3 months. Avoid constipation. Patient will need a colonoscopy in 6-12 months to remove polyps with a 2 day prep. 2. Internal hemorrhoids. 3. GI bleed resolved. 4. Iron deficiency secondary to GI blood loss. Continue Icar-C. 5. Hypertension. Continue medications. 6. Tobacco abuse. Daily smoking cessation as well as need to quit has been discussed. 7. Prostate cancer history. HOSPITAL COURSE: Mr. Dennison is a 76-year-old male who carries a past medical history of diverticulosis, prostate cancer and hypertension complaining of a 2-3 week history of postural dizziness. He lost about 10 pounds in the last year which was unintentional. He came to the ED with 2 episodes of bright red hematochezia without any clots. No melenic stools were noted. No nausea, vomiting or abdominal pain. Just the posterior lightheadedness got worse and he got concerned and presented to [place] ED where he was evaluated. The patient was transferred to [facility] for GI evaluation. He was started on IV fluid resuscitation with serial hemoglobin and hematocrits. Consulted GI as well as daily smoking cessation education. The patient underwent a colonoscopy with snare polypectomy with Dr. Subramanian. He recommends a full liquid diet for the next 4 days followed by a soft diet for 4 days. Avoid corn, nuts and seeds in the diet. MiraLAX, Icar-C for 3 months. Avoid constipation. Follow up with him for colonoscopy in 6-12 months to remove polyps with a [address] Mejía is discharging the patient home today. VITAL SIGNS: Temperature is 97.6 degrees, heart rate 61, respirations 16, blood pressure 185/85, O2 is 100% on room air. DISCHARGE DIET: A full liquid diet for 4 days and then GI soft for 4 days. DISCHARGE MEDICATIONS: As per Dr. Mejía. FOLLOWUP: 1. The patient is being discharged home to follow up with Dr. Subramanian in 6-12 months for repeat colonoscopy. 2. Stay on a full liquid diet for 4 days and then GI soft for 4 days. 3. The patient can follow up with his primary care physician, Dr. Jay Weiss in 7-10 days. 4. Patient can return to the ED for any worsening of symptoms. DISCHARGE TIME: 35 minutes. Dictated by LEATHA Post for Dago Dutta MD cc: Dago Dutta MD [facility]
[2017-03-18] MEDS ORDERED: MIRALAX PO SCH (21:00)
[2017-03-19] MEDS ORDERED: DITROPAN XL PO SCH (09:00)
[2017-03-19] MEDS ORDERED: MEGACE PO SCH (09:00)
[2017-03-19] MEDS ORDERED: OMEPRAZOLE 20 MG PO SCH (09:00)
== END 2017-03-18 13:51 | disposition home or self-care (01) ==
LOC: P.ED 14:58 → SUATTDRO 18:29 → 3N 18:29
PROVIDERS: ATTEND Internal Medicine

== ENCOUNTER 2017-06-29 14:24 | Inpatient (IN) ==
[2017-06-29] MEDS ORDERED: SODIUM CHLORIDE 0.9% INJ ONE ×2 (15:21→19:33)
[2017-06-29] MEDS ORDERED: ZOFRAN IV ONE (15:21)
[2017-06-29] MEDS ORDERED: PROTONIX IV ONE (15:21)
[2017-06-29] MEDS ORDERED: NS 1,000 ML IV ONE ×2 (15:21→19:33)
[2017-06-29 16:02] LABS: URINE CULTURE PL NEEDED? NO
[2017-06-29 16:15] LABS: BILIRUBIN URINE NEGATIVE (NEGATIVE); BLOOD URINE 1+ (NEGATIVE); CLARITY CLEAR (CLEAR); COLOR YELLOW; GLUCOSE URINE NEGATIVE (NEGATIVE); LEUKOCYTES URINE NEGATIVE (NEGATIVE); NITRITE URINE NEGATIVE (NEGATIVE); PROTEIN URINE NEGATIVE (NEGATIVE); UROBILINOGEN URINE NORMAL
[2017-06-29 16:29] LABS: MANUAL DIFF NEEDED? NO
[2017-06-29 16:31] LABS: BASO% 0.3 % (0.0-0.8); EOS# 0.66 X1000 (0.0-0.7); EOS% 9.4 % (0.0-10.0); HEMATOCRIT 31.3 % (42.0-52.0); HEMOGLOBIN 10.5 g/dL (14.0-18.0); IMM GRAN# 0.01 X1000 (0.0-0.04); IMM GRAN% 0.1 % (0.0-0.5); LYMPH# 1.63 X1000 (1.2-3.4); LYMPH% 23.1 % (20.5-51.1); MCH 31.2 PG (27-31); MCHC 33.5 g/dL (33-37); MCV 92.9 FL (81-99); MONO# 0.57 X1000 (0.11-0.59); MONO% 8.1 % (1.7-9.3); MPV 8.7 FL (7.4-10.4); PLT 278 X1000 (130-400); RBC 3.37 XMIL (4.7-6.1)
[2017-06-29 16:38] LABS: URINE SOURCE CLEAN CATCH
[2017-06-29 16:39] LABS: URINE EPITHELIAL CELLS <10 /HPF (<10); URINE RBC <10 /HPF (<10); URINE WBC <10 /HPF (<10)
[2017-06-29 16:51] LABS: INR 0.92 (0.86-1.15); PROTIME 13.1 Seconds (12.1-15.5)
[2017-06-29 16:52] LABS: PTT PL 32.6 Seconds (22.6-43.9)
[2017-06-29 16:53] LABS: AGAP 12; ALBUMIN 3.7 g/dL (3.5-5.0); ALKALINE PHOSPHATASE 40 U/L (32-122); AMYLASE 71 U/L (20-200); BUN 11 mg/dL (8-22); CALCIUM 8.9 mg/dL (8.8-10.2); CHLORIDE 105 mmol/L (98-107); COSMO 271; GOT 11 U/L (10-34); GPT 8 U/L (10-44); LIPASE 38 U/L (13-60); POTASSIUM 3.8 mmol/L (3.5-5.1); SODIUM 136 mmol/L (136-145); TCO2 19 mmol/L (25-35)
--- NOTE | 2017-06-29 17:43 | Diag Imaging Result Doc PS360 ---
EXAM: CT ABD/PELVIS W/ IV CONT ONLY HISTORY: Abd pain with rectal bleedding TECHNIQUE: CT abdomen and pelvis with contrast. Dose reduction protocol. COMPARISON: 03/16/2017 FINDINGS: There are several tiny hepatic cysts. No other hepatic abnormality. No calcified gallstones or adjacent inflammation. Normal spleen, pancreas, and right adrenal gland. A 2.1 x 2.5 cm nodule arises from the left adrenal gland. This is unchanged. There are multiple bilateral renal cysts. The largest arises from the right lower renal pole measuring 9.1 cm. No renal stones. No hydronephrosis. Moderate to prominent atherosclerosis. No aneurysmal dilatation to the aorta. No bowel obstruction. Normal appendix. There are many diverticula scattered throughout the colon. Questionable minimal adjacent inflammation in the mid descending colon. No free air. No abscess. The urinary bladder is moderately distended and appears normal. The prostate indents the base of the bladder. IMPRESSION: Extensive diverticulosis with possible minimal mid descending colonic diverticulitis. No other change compared to the prior exam. Electronically signed by Manuel Rodriguez 06/29/2017 5:41 PM
--- NOTE | 2017-06-29 17:49 | PROVIDER DOCUMENTATION ---
This chart was entered by Ashley Valentin Scribe, acting as scribe for Iona Moran MD. HPI-Abdominal Pain/GI Problem - General Chief Complaint: GI Bleed Stated Complaint: ABD PAIN Time Seen by Provider: 06/29/17 14:35 Source: patient Allergies/Adverse Reactions: Patient Allergies Allergy/AdvReac Type Severity Reaction Status Date / Time No Known Allergies Allergy Verified 06/02/17 18:52 Home Medications: Home Medication List Medication Instructions Recorded Confirmed Last Taken Type Amlodipine/Valsartan [Exforge 1 each PO DAILY 03/17/17 06/02/17 06/28/17 History 10/320 mg Tablet] - History of Present Illness-ABD Nature of Presenting Problems: PT is a 77 y/o M that presents to the ED with cc of bright red blood in his stool x2 today. PT states he noticed it this morning and again just station captain to ed. PT denies chest pain, nausea and vomiting. PT had a tumor removed from his abdominal area around 12 years ago. Abdominal Pain Onset Location: reports: RLQ, LLQ Pain Radiation: reports: no radiation Quality of Pain: reports: aching Severity in ED: reports: moderate Onset/Duration: reports: abrupt, this morning Timing: reports: still present Activities at Onset: reports: none Exposure to sick contacts?: No Modifying Factors: improves with: nothing Associated Symptoms: reports: other (abdominal pain and blood in stool) Last BM: this afternoon Dark Stools Present?: reports: bright red blood Rectal Bleeding: reports: blood mixed with stool Rectal Pain: reports: none Bruising or Bleeding Gums?: No Similar Symptoms Previously?: Yes Recently seen or treated by another doctor?: Yes Review of Systems - Adult - REVIEW OF SYSTEMS - ADULT Constitutional: reports: no symptoms reported Eyes: reports: no symptoms reported Ears, Nose, Mouth & Throat: reports: no symptoms reported Cardiovascular: reports: no symptoms reported Respiratory: reports: no symptoms reported Gastrointestinal: reports: abdominal pain (RLQ and LLQ), rectal bleeding Genitourinary: reports: no symptoms reported Musculoskeletal: reports: no symptoms reported Integumentary: reports: no symptoms reported Neurological: reports: no symptoms reported Psychiatric: reports: no symptoms reported Endocrine: reports: no symptoms reported Hematologic/Lymphatic: reports: no symptoms reported Allergic/Immunologic: reports: no symptoms reported All Other Systems: Reviewed and Negative Past History - Adult - PAST MEDICAL HISTORY-ADULT Review of Records: reports: Old Records Reviewed, Nursing Assessment Review, Medications Reviewed Major Childhood Illnesses: reports: denies history Cardiovascular: reports: HTN Gastrointestinal: reports: GI bleed, polyps Genitourinary: reports: prostate cancer, other (bph) Neurological: reports: denies history Psychiatric: reports: denies history Endocrine/Immune: reports: denies history Other Conditions: reports: denies history - PRIOR SURGERIES/PROCEDURES Surgical/Procedure History: reports: hernia repair, orthopedic (extremity) ( foot surgery), other (stomach tumor right great toe bunion removal) - PRIOR HOSPITALIZATIONS Prior Hospitalizations: reports: none - IMMUNIZATION STATUS Childhood Immunizations: See Nurse Assessment Flu Vaccine: See Nurse Assessment - FAMILY HISTORY Family History: reviewed, not pertinent - SOCIAL HISTORY Smoking: cigarettes, less than 1 pack/day Provider spent 3-5 mins advising pt. on dangers of tobacco.: Discussed manners to quit use, and f/u contacts for add'l counseling. Alcohol Use Frequency: sober (former use) Living Situation: family Physical Exam-General - PHYSICAL EXAM-ADULT Initial Vital Signs Reviewed: Yes - CONSTITUTIONAL General Appearance: appears well, alert, no apparent distress - EYES Eyes: PERRL/EOMI, pink conjunctivae - HEAD, EARS, NOSE, MOUTH & THROAT HENMT: normocephalic/atraumatic, moist mucous membranes - RESPIRATORY Respiratory: chest non-tender, lungs clear, normal breath sounds - CARDIOVASCULAR Cardiovascular: normal peripheral pulses, regular rate, rhythm - GASTROINTESTINAL (ABDOMEN) Abdominal Exam: normal bowel sounds, soft, tenderness (RLQ AND LLQ) - GENITOURINARY Rectal Exam: blood streaked stool, hemorrhoids, prostate enlarged/nodule Hemoccult Exam: heme positive stool - LYMPHATIC Lymphatic: no adenopathy - SKIN Integumentary: normal color, normal turgor, warm/dry - NEUROLOGIC Neurologic: director of capital giving II-XII nml as tested, grossly normal - PSYCHIATRIC Psych/Mental Status: normal mood/affect, normal thought content, oriented x 3 Progress - PLAN OF CARE/RESULTS Progress/Plan/Lab Results: Vital Signs - 8 hr 06/29/17 14:29 Temperature 98.4 F Pulse Rate 80 Respiratory Rate 18 Blood Pressure 160/92 O2 Sat by Pulse Oximetry 99 Orders Category Date Time Status Saline Loc DIRECTED Care 06/29/17 15:21 Active NPO Diet 06/29/17 15:[address] ABD/PELVIS W/ IV CONT ONLY [CT] Stat Exams 06/29/17 15:21 Ordered AMYLASE [CHEM] Stat Lab 06/29/17 15:21 Ordered CBC WITH ELECTRONIC DIFF [HEME] Stat Lab 06/29/17 15:21 Ordered COMPREHENSIVE METABOLIC PANEL [CHEM] Stat Lab 06/29/17 15:21 Ordered LIPASE [CHEM] Stat Lab 06/29/17 15:[address] Or[address]IME WITH INR PL [COAG] Stat Lab 06/29/17 15:[address] [COAG] Stat Lab 06/29/17 15:21 Ordered TROPONIN T Stat Lab 06/29/17 15:21 Ordered TYPE & SCREEN [BBK] Stat Lab 06/29/17 15:[address] W/POSS RFLX CULT [URINALYSIS] Stat Lab 06/29/17 15:21 Uncollected 0.9% Sodium Chloride Inj [Ns] 1,000 ml Med 06/29/17 15:21 Active IV 150 mls/hr Ondansetron [Zofran] Med 06/29/17 15:21 Discontinued 8 mg IV NOW ONE Pantoprazole [Protonix] Med 06/29/17 15:21 Discontinued 40 mg IV NOW ONE Sodium Chloride 0.9% Med 06/29/17 15:21 Discontinued 10 ml INJ NOW ONE Result Diagrams: 06/30/17 04:39 06/29/17 15:57 - CHANGE OF SHIFT REPORT (ED Provider) Report Given and Care Transferred to:: Dr. Marcum Time of Transfer: 18:00 Items Pending: Labs, CT/MRI Results, Other (Admission) Departure - Departure Date of Disposition Decision: 06/29/17 Time of Disposition Decision: 18:35 DIAGNOSIS: Lower GI bleed, Diverticulitis Disposition: ADMITTED INPATIENT 09 Certified Medical Emergency: Emergent Condition: Stable - Critical Care Note This patient required my direct & personal management of CC.: No Attestation - Physician/ DIANA Attestation Patient care was provided by Advanced Practice Provider:: No The physician spent face to face time with patient:: Yes Advanced Practice Provider documentation review:: Supervising physician onsite and consulted in the evaluation and care of this patient. The physician did have a face to face encounter with the patient. This chart was documented by the indicated scribe, (Ashley Valentin, Scribe) and accurately reflects the services I performed and decisions made by me, Iona Moran MD, as attested by the provider's signature.
[2017-06-29] MEDS ORDERED: ZOFRAN IV PRN (19:33)
[2017-06-29 19:45] LABS: OCCULT BLOOD 1 NEGATIVE (NEGATIVE)
[2017-06-29] MEDS: PROTONIX IV SCH (20:10)
[2017-06-29 22:05] LABS: HEMATOCRIT 26.4 % (42.0-52.0); HEMOGLOBIN 8.7 g/dL (14.0-18.0)
[2017-06-30 03:15] LABS: HEMATOCRIT 26.1 % (42.0-52.0); HEMOGLOBIN 8.7 g/dL (14.0-18.0)
[2017-06-30 04:21] LABS: HEMATOCRIT 24.9 % (42.0-52.0); HEMOGLOBIN 8.3 g/dL (14.0-18.0)
[2017-06-30 06:21] LABS: HEMATOCRIT 25.1 % (42.0-52.0); HEMOGLOBIN 8.2 g/dL (14.0-18.0)
[2017-06-30 09:20] LABS: POTASSIUM 3.9 mmol/L (3.5-5.1); TOTAL BILIRUBIN 0.3 mg/dL (0.20-1.00); TOTAL PROTEIN 5.5 g/dL (6.3-8.3)
[2017-06-30 09:57] LABS: MANUAL DIFF NEEDED? NO
[2017-06-30 10:15] LABS: ALBUMIN 2.9 g/dL (3.5-5.0)
[2017-06-30 10:16] LABS: BASO% 0.2 % (0.0-0.8); EOS# 0.48 X1000 (0.0-0.7); EOS% 7.4 % (0.0-10.0); IMM GRAN# 0.01 X1000 (0.0-0.04); IMM GRAN% 0.2 % (0.0-0.5); LYMPH# 1.48 X1000 (1.2-3.4); LYMPH% 22.7 % (20.5-51.1); MCH 30.1 PG (27-31); MONO# 0.43 X1000 (0.11-0.59); MONO% 6.6 % (1.7-9.3); NEUT% 62.9 % (42.2-75.2); PLT 230 X1000 (130-400); RBC 2.66 XMIL (4.7-6.1)
[2017-06-30] MEDS ORDERED: SODIUM CHLORIDE 0.9% INJ PRN (12:52)
[2017-06-30] MEDS: TYLENOL PO PRN (15:02)
[2017-06-30 16:37] LABS: HEMOGLOBIN 7.7 g/dL (14.0-18.0)
[2017-06-30] MEDS: PROTONIX IV SCH (19:20)
[2017-06-30 20:41] LABS: HEMATOCRIT 23.6 % (42.0-52.0); HEMOGLOBIN 7.7 g/dL (14.0-18.0)
[2017-06-30 22:03] LABS: HEMATOCRIT 23.2 % (42.0-52.0); HEMOGLOBIN 7.7 g/dL (14.0-18.0)
[2017-07-01 10:21] LABS: HEMATOCRIT 27.2 % (42.0-52.0); HEMOGLOBIN 9.1 g/dL (14.0-18.0)
[2017-07-01] MEDS: PROTONIX IV SCH ×2 (20:10→20:21)
[2017-07-02 06:50] LABS: HEMATOCRIT 22.8 % (42.0-52.0); HEMOGLOBIN 7.5 g/dL (14.0-18.0)
[2017-07-02 09:23] LABS: IRON SATURATION 12 %; TIBC 293 ug/dL; TOTAL IRON 35 ug/dL (53-167); UNBOUND IRON 258 ug/dL (112-346)
[2017-07-02 11:53] LABS: HEMATOCRIT 22.2 % (42.0-52.0); HEMOGLOBIN 7.4 g/dL (14.0-18.0)
[2017-07-02] MEDS ORDERED: BENADRYL PO ONE ×2 (15:32→18:00)
[2017-07-02] MEDS ORDERED: TYLENOL PO ONE (15:32)
[2017-07-02] MEDS ORDERED: NS 250 ML ONE (18:01)
[2017-07-02] MEDS: TYLENOL PO PRN (18:08)
[2017-07-03 06:17] LABS: HEMATOCRIT 28.4 % (42.0-52.0); HEMOGLOBIN 9.5 g/dL (14.0-18.0)
[2017-07-03 08:27] VITALS: BP 160/75
--- NOTE | 2017-07-18 07:53 | HISTORY AND PHYSICAL ---
HISTORY OF PRESENT ILLNESS: This patient is a 77-year-old patient that I see on a regular basis in my office with a history of prostate cancer, status post prostatectomy, history of high blood pressure uncomplicated on Exforge, amlodipine 10, valsartan 320, and a history of GI bleeding. He presented to the emergency room the day of admission complaining of some abdominal pain and in association with abdominal pain, he had some bright red blood in his stools for the past 2 days. He stated that this being the 3rd day, again noticed that. He denies chest pain, nausea, vomiting. Long ago, he had enormous polyp in his duodenum that was removed approximately 12 years ago. He denies any external hemorrhoids. He is an occasional binge drinker. He does not use over the counter NSAIDs or aspirin products. In the emergency room, he was seen by the ER physician who ordered a CBC which revealed a hematocrit of 25.1, hemoglobin 8.2. His BUN was only 11, creatinine 0.9, suggesting that this is more likely a lower GI bleed. Blood sugar was 95. Sodium was 136, potassium was 3.8, his chloride was 105, CO2 was 19. It was felt that he may have diverticulitis. He was admitted with anemia, possible diverticulitis, history of giant polyp. PAST MEDICAL HISTORY: Again, hypertension, GI bleed from duodenal polyp, history of giant duodenal polyps, history of prostrate cancer, status post prostatectomy. REVIEW OF SYSTEMS: Constitutional: He denies any fever, chills, weight gain, weight loss. Eyes: No change in visual cesar or irritation. Ears, Nose, and Throat: No pharyngitis, sinusitis, or otitis. Cardiovascular: No chest pain, palpitations, edema, PND, orthopnea. Respiratory: No cough, phlegm, wheeze, shortness of breath, SMITH, PND, orthopnea. GI: See present illness. Genitourinary: He has some lower urinary tract symptoms. He has ED. Musculoskeletal: No symptoms. Skin: No skin rashes or lesions were noted. Neurological: He has no history of seizures or migraine, strokes. Psychiatric: No history of any psychiatric illnesses. Endocrine: No diabetes, thyroid. Hematological: No bleeding disorder, no clotting disorder. Allergies: No asthma, hayfever. SOCIAL HISTORY: He smokes cigarettes, less than a pack a day. He lives with his and his family. PHYSICAL EXAMINATION: VITAL SIGNS: At the time of admission, his temperature was 98.4 degrees, pulse was 80, respiratory rate was 18, BP 160/92, O2 saturation was 99. HEENT: Head was normocephalic. Eyes were PERRLA. EOMs intact. Sclerae clear, not particularly pale. Nares patent. Oropharynx negative. NECK: Supple. Bounding carotids without thyromegaly. CHEST: Clear bilateral breath sounds. CARDIOVASCULAR EXAMINATION: Regular rhythm and rate. No murmurs, gallops, clicks, or rubs. ABDOMEN: Soft. No hepatosplenomegaly. No CVA tenderness. No hernias. EXTREMITIES: Negative for clubbing, cyanosis, or edema. RECTAL: Heme positive stools. NEUROLOGICAL: Examination was symmetrical. ADMITTING DIAGNOSES: 1. Abdominal pain. 2. Gastrointestinal bleed with anemia. 3. History of giant duodenal polyp, resected. 4. History of gastrointestinal bleeds related to ulcer issues. 5. Status post prostatectomy. 6. Hypertension. cc: Jay Weiss MD
--- NOTE | 2017-07-18 09:27 | DISCHARGE SUMMARY ---
ADMISSION DATE: 06/29/2017 DISCHARGE DATE: 07/03/2017 HISTORY AND HOSPITAL COURSE: The patient presented to the emergency room with anemia and GI bleed with a past history of similar episode, 1 of which revealed a giant duodenal polyp that was resected in [place] and others that have revealed no obvious source. He is having some belly pain but not particularly much. He a has had some bloody, black stools in the ER and was brought with a hematocrit of 25.1, hemoglobin 8.2. The attending physician in the ER admitted him with suspected diverticular bleed with diverticulitis. He had the following imaging studies. He had a CT of his abdomen and pelvis done on 06/29 which revealed some tiny hepatic cysts, otherwise negative. A normal gallbladder, spleen, pancreas, and right adrenal gland. There was a 2.1 x 2.5 cm nodule arising from his left adrenal gland which is unchanged from previous examinations. There are bilateral multiple renal cysts. The largest arises from the right lower pole of the kidney. It measures 9.1 cm. No stones. No hydronephrosis. He has moderate atherosclerosis. No aneurysm. No bowel obstruction. Normal appendix. There are diverticula throughout the colon. Minimal adjacent inflammation in the mid descending colon. No free air. No abscess. Bladder was moderately distended and appeared normal. Prostate indents the base of the bladder and interpretation was extensive diverticulosis with possible minimal mild descending chronic colitis. He also had laboratory done during this stay. Primarily we were following his hematocrit. His hematocrit on 06/29 1557 was 31.3. On 06/29 2145 it was 26.4. His hemoglobin stayed in the 8, 8.7, 8.3, 8.2 range, finally getting down to 23 on the and 22 on the . He was not symptomatic. On the we transfused him up to 28.4. His PT was normal. His urinalysis 1.020 specific gravity, 1+ blood on admission, less than 10 RBCs. His stools were negative on 06/29 1540. His iron level was 35, TIBC 293, sat was 12, ferritin was 76. His initial electrolytes were all normal other than slightly diminished carbon dioxide level 19 and 17 on the and respectively. His creatinine was 0.9 and 1.2. We continued to watch him and he had no significant bleed. His vital signs were stable throughout the stay. His medications were Exforge 10 which was held because of his bleeding and his pressure. He was given 40 of Protonix IV, Zofran p.r.n. He was given some IV normal saline 125 mL an hour. His pain subsided. I do not think he really had diverticulitis. I think he may have had a diverticular bleed as evidenced by his primarily bright red or maroon colored stools. DISCHARGE MEDICATIONS: He was discharged on his regular medicines, Exforge, Prilosec 20, acetaminophen, Zofran. FOLLOW-UP: He will follow up in the office with a CBC. His white counts on old CBCs were 7,000 and 6,000. So, he was discharged. He is following up in the office in next days with a repeat CBC. I am also going to start him on iron therapy and resume his regular medicines. cc: Jay Weiss MD
== END 2017-07-03 10:20 | disposition home or self-care (01) ==
LOC: P.ED 14:24 → P.MEDSURG 20:11
PROVIDERS: ADMIT Internal Medicine; ATTEND Internal Medicine

== ENCOUNTER 2018-12-20 09:21 | Inpatient (IN) ==
[2018-12-20 10:22] LABS: BASO# 0.03 X1000 (0.0-0.2); BASO% 0.5 % (0.0-0.8); EOS# 0.73 X1000 (0.0-0.7); EOS% 12.7 % (0.0-10.0); HEMATOCRIT 36.6 % (42.0-52.0); HEMOGLOBIN 12.6 g/dL (14.0-18.0); IMM GRAN# 0.01 X1000 (0.0-0.04); IMM GRAN% 0.2 % (0.0-0.5); LYMPH% 22.6 % (20.5-51.1); MCHC 34.4 g/dL (33-37); MCV 92.9 FL (81-99); MONO% 10.5 % (1.7-9.3); MPV 8.9 FL (7.4-10.4); NEUT# 3.07 X1000 (1.4-6.5); NEUT% 53.5 % (42.2-75.2); PLT 245 X1000 (130-400); RBC 3.94 XMIL (4.7-6.1); RDW 14.9 % (11.5-14.5); WBC 5.74 X1000 (4.8-10.8)
[2018-12-20 10:38] LABS: AGAP 10; ALBUMIN 3.8 g/dL (3.5-5.0); ALKALINE PHOSPHATASE 59 U/L (32-122); BUN 13 mg/dL (8-22); CALCIUM 8.1 mg/dL (8.8-10.2); CHLORIDE 105 mmol/L (98-107); COSMO 277; ESTIMATED GFR > 60; GLUCOSE 112 mg/dL (70-104); GOT 14 U/L (10-34); GPT 11 U/L (10-44); POTASSIUM 4.1 mmol/L (3.5-5.1); SODIUM 138 mmol/L (136-145); TCO2 23 mmol/L (25-35); TOTAL PROTEIN 6.6 g/dL (6.3-8.3)
[2018-12-20 10:42] LABS: INR 0.99; PROTIME 13.6 Seconds (11.0-16.0)
[2018-12-20 10:43] LABS: PTT 31.8 Seconds (22.3-41.8)
[2018-12-20] MEDS ORDERED: SODIUM CHLORIDE 0.9% INJ ONE (10:49)
[2018-12-20] MEDS ORDERED: PROTONIX IV ONE (10:49)
[2018-12-20] MEDS ORDERED: NS 1,000 ML IV ONE (10:49)
[2018-12-20] MEDS ORDERED: APRESOLINE IV ONE (10:55)
--- NOTE | 2018-12-20 10:57 | PROVIDER DOCUMENTATION ---
This chart was entered by Ave Reyez Scribe, acting as scribe for Noemi Garcia MD. HPI-Abdominal Pain/GI Problem - General Chief Complaint: Rectal Bleeding Stated Complaint: MALE Time Seen by Provider: 12/20/18 09:38 Source: patient Allergies/Adverse Reactions: Patient Allergies Allergy/AdvReac Type Severity Reaction Status Date / Time No Known Allergies Allergy Verified 12/20/18 10:18 Home Medications: Home Medication List Medication Instructions Recorded Confirmed Last Taken Type Amlodipine [Norvasc] 10 mg PO DAILY #30 tablet 11/16/17 07/31/18 Unknown Rx Losartan Potassium 100 mg PO DAILY #90 tablet 11/16/17 07/30/18 07/29/18 09:00 Rx Iron Carbonyl/Ascorbic Acid 1 each PO BID tablet 08/01/18 Unknown Rx [Icar-C] Meclizine HCl [Antivert] 50 mg PO TID #30 tab 10/19/18 Unknown Rx - History of Present Illness-ABD Nature of Presenting Problems: Patient is a 78 year old male who presents to the ED with rectal bleeding. Patient states noticing bright red blood on his stool this morning. Patient states history of GI bleeds. Patient denies abdominal pain. Patient states havin g mild lightheadedness. Quality of Pain: reports: none Severity in ED: reports: mild Onset/Duration: reports: this morning Timing: reports: still present Activities at Onset: reports: light activity Modifying Factors: improves with: nothing Associated Symptoms: reports: other (rectal bleeding and lightheadedness) Last BM: this morning Dark Stools Present?: reports: bright red blood Rectal Bleeding: reports: blood streaks on stool Bruising or Bleeding Gums?: No Similar Symptoms Previously?: Yes Recently seen or treated by another doctor?: No Review of Systems - Adult - REVIEW OF SYSTEMS - ADULT Constitutional: reports: no symptoms reported Eyes: reports: no symptoms reported Ears, Nose, Mouth & Throat: reports: no symptoms reported Cardiovascular: reports: no symptoms reported Respiratory: reports: no symptoms reported Gastrointestinal: reports: rectal bleeding. denies: abdominal pain, diarrhea, nausea, vomiting Genitourinary: reports: no symptoms reported Musculoskeletal: reports: no symptoms reported Integumentary: reports: no symptoms reported Neurological: reports: other (lightheaded). denies: dizziness/vertigo, headache/migraines, numbness, seizure Psychiatric: reports: no symptoms reported Endocrine: reports: no symptoms reported Hematologic/Lymphatic: reports: no symptoms reported Allergic/Immunologic: reports: no symptoms reported All Other Systems: Reviewed and Negative Past History - Adult - PAST MEDICAL HISTORY-ADULT Review of Records: reports: Nursing Assessment Review, Medications Reviewed, Social history reviewed & non-contributory. Major Childhood Illnesses: reports: denies history Cardiovascular: reports: HTN Respiratory: reports: denies history Gastrointestinal: reports: GI bleed, polyps Obstetrical/Gynecological: reports: denies history Genitourinary: reports: prostate cancer, other (bph) Musculoskeletal: reports: denies history Neurological: reports: CVA Psychiatric: reports: denies history Endocrine/Immune: reports: denies history Other Conditions: reports: denies history - PRIOR SURGERIES/PROCEDURES Surgical/Procedure History: reports: hernia repair, orthopedic (extremity) (foot surgery), other (stomach tumor right great toe bunion removal) - PRIOR HOSPITALIZATIONS Prior Hospitalizations: reports: none - IMMUNIZATION STATUS Childhood Immunizations: See Nurse Assessment Flu Vaccine: See Nurse Assessment - FAMILY HISTORY Family History: reviewed, not pertinent - SOCIAL HISTORY Smoking: cigarettes, less than 1 pack/day Provider spent 3-5 mins advising pt. on dangers of tobacco.: Discussed manners to quit use, and f/u contacts for add'l counseling. Substance Use: alcohol Alcohol Use Frequency: occasionally Physical Exam-General - PHYSICAL EXAM-ADULT Initial Vital Signs Reviewed: Yes - CONSTITUTIONAL General Appearance: appears well, alert, no apparent distress - EYES Eyes: pink conjunctivae - HEAD, EARS, NOSE, MOUTH & THROAT HENMT: moist mucous membranes - RESPIRATORY Respiratory: chest non-tender, lungs clear, normal breath sounds - CARDIOVASCULAR Cardiovascular: normal peripheral pulses, regular rate, rhythm - GASTROINTESTINAL (ABDOMEN) Abdominal Exam: normal bowel sounds, non tender, soft - GENITOURINARY Rectal Exam: black stool, hemorrhoids - SKIN Integumentary: normal color, normal turgor, warm/dry - NEUROLOGIC Neurologic: grossly normal - PSYCHIATRIC Psych/Mental Status: normal mood/affect, oriented x 3 Progress - PLAN OF CARE/RESULTS Progress/Plan/Lab Results: Vital Signs - 8 hr 12/20/18 09:30 Temperature 98.1 F Pulse Rate 85 Respiratory Rate 18 Blood Pressure 193/110 O2 Sat by Pulse Oximetry 94 L Result Diagrams: 12/20/18 09:55 12/20/18 09:55 - CONSULTS/PCP/HOSPITALIST Notification #1 *Consult/PCP/Hospitalist*: Dr. Weiss Time Discussed: 10:53 Reason/Comments: Dr. Garcia consulted with Dr. Weiss about patient. Consult Disposition: other (Dr. Weiss states consult with hospitalist to have patient go to [facility] for GI.) #2 Consult: Dr. Fuentes Time Discussed: 10:54 Reason/Comments: Dr. Garcia consulted with Dr. Feuntes about patient. Departure - Departure Date of Disposition Decision: 12/20/18 Time of Disposition Decision: 10:54 DIAGNOSIS: GI bleed Disposition: ADMITTED INPATIENT 09 Certified Medical Emergency: Emergent Condition: Stable Referrals and Follow-Ups: Jay Weiss MD [Primary Care Provider] - - Critical Care Note This patient required my direct & personal management of CC.: No Attestation - Physician/ DIANA Attestation The physician spent face to face time with patient:: Yes Advanced Practice Provider documentation review:: Supervising physician onsite and consulted in the evaluation and care of this patient. The physician did have a face to face encounter with the patient. This chart was documented by the indicated scribe, (Ave Reyez Scribe) and accurately reflects the services I performed and decisions made by , Noemi Garcia MD, as attested by the provider's signature.
[2018-12-20 11:17] LABS: OCCULT BLOOD 1 POSITIVE (NEGATIVE)
--- NOTE | 2018-12-20 12:17 | Diag Imaging Result Doc PS360 ---
FLAT/UPRIGHT ABD/1 VIEW CHEST - 12/20/2018 INDICATION: ileus TECHNIQUE: COMPARISON: 09/22/2017 FINDINGS: The chest is clear. There is mild to moderate constipation throughout the colon. No bowel obstruction or free air. IMPRESSION: Mild to moderate constipation. Electronically signed by Kendell Rasheed 12/20/2018 12:15 PM
[2018-12-20 12:21] LABS: HEMATOCRIT 34.6 % (42.0-52.0); HEMOGLOBIN 11.8 g/dL (14.0-18.0)
[2018-12-20] MEDS ORDERED: PROTONIX 80 MG in NS 80 ML IV SCH (12:30)
--- NOTE | 2018-12-20 12:48 | HISTORY AND PHYSICAL ---
CHIEF COMPLAINT: Rectal bleeding, hematochezia. SUBJECTIVE: Patient is a 78 year old hypertensive, who I think has some issues with compliance unfortunately, who comes in with rectal pain. His story is somewhat dynamic in its details. It sounds like he has constipation. He took a constipation pill and since that time he has had 3 or 4 bowel movements that have been bloody. He reports initially that it was hematochezia, but then he also says it was maroon and the stool noted today in the ER is black and tarry, consistent with melena. He reports no dyschezia. He had a history of GI bleed for which he was admitted in July, found to have hemorrhoids and significant diverticulosis. He feels his symptoms have been associated with broccoli he ate yesterday, but he does not describe any pain. His workup in the ER again revealed hypertension, otherwise normal. He was not toxic appearing. His hemoglobin and hematocrit is 12 and 36, which is a drop from October, but up from his GI bleed episode in July, heme-positive. Stool was reported as dark and tarry and black. He states he does take aspirin and his I think states he takes aspirin. I am not quite sure if he takes iron. He was discharged on iron last admission. Unclear if he is still taking that, but the aspirin he takes a full dose. When he interviewed with the student, I think he described that he was taking it twice a day. It is unclear that he is taking that because he has stopped taking or ran out of his blood pressure medicine, and he was increasing his aspirin to compensate for that, but then when I asked him that again he did not confirm that, but he is at least taking 325 of aspirin a day as far as I can tell. No other NSAIDs. PAST MEDICAL HISTORY: 1. Hypertension, severe diverticulosis. 2. Noncompliance. 3. Prostate cancer. 4. History of cerebrovascular accident. 5. Hypertension. 6. Denies diabetes or cardiac disease. PAST SURGICAL HISTORY: 1. He has had a hernia repair. 2. Foot surgery. 3. Prostatectomy. SOCIAL HISTORY: He used to smoke about a pack a day. No alcohol, although I think he has a history of alcohol use. His smoking is about half a pack a day since 2004. He is retired ALLERGIES: No known drug allergies. MEDICATIONS: Unclear, at least aspirin. He was on iron, losartan and Norvasc, but then he says he also takes lisinopril, but it is not really clear. FAMILY HISTORY: No cancer history. REVIEW OF SYSTEMS: In any case review of systems with no weight loss, no appetite change. No chest pains, palpitations. No shortness of breath. No cough. No nausea, vomiting. Otherwise, negative x10 point review of system. PHYSICAL EXAMINATION: VITAL SIGNS: Current blood pressure is 170/95, heart rate of 76, respiratory rate of 24, temperature 98.1 degrees satting 97% on room air. CARDIOVASCULAR: Regular rate and rhythm. PULMONARY: Bilateral breath sounds. Clear to auscultation. GI: His abdominal exam: He has some issues with abdominal problems. He has some distention, but bowel sounds are stable. There is no rebound or guarding. EXTREMITY EXAM: There was no peripheral edema. No clubbing or cyanosis. LYMPHATIC EXAM: No peripheral edema. NEUROLOGICAL EXAM: Nonfocal. MUSCULOSKELETAL EXAM: Musculoskeletal exam was 5/5 in all 4 extremities. LABORATORY DATA: Basic was okay. Creatinine of 1. H and H 12 and 36 with a normal MCV. Urine clear, heme-positive. Plain films have not been obtained. ASSESSMENT: A 78-year-old male with a gastrointestinal bleed, possibly upper, possibly combination of upper and lower. 1. Gastrointestinal bleed: We will continue to monitor h/h levels, he does not require transfusion at this point; but we will check h/h q6h; will continue Protonix infusion. Hold aspirin. Coagulation parameters are within normal limits. We will get a Gastroenterology consultation for upper and possibly lower endoscopy. He looks to be severely constipated, so I think that maybe part of his issue is just maintaining a normal bowel movement. Initiate a bowel regimen. 2. Hypertension, which is poorly controlled. Encourage compliance, dietary improvement. Will resume his losartan and may have to adjust accordingly. 3. Anemia, likely iron deficient. The patient is doing well. We will monitor in [facility] just because of his gastrointestinal bleed and uncontrolled hypertension. cc: MD Jay Mueller MD MTDD
[2018-12-20] MEDS ORDERED: APRESOLINE IV PRN (18:19)
[2018-12-20] MEDS ORDERED: ZOFRAN IV PRN (18:19)
[2018-12-20] MEDS ORDERED: TYLENOL PO PRN (18:19)
[2018-12-20] MEDS: NS 1,000 ML IV SCH ×2 (18:30→23:19)
[2018-12-20] MEDS: LACTULOSE PO SCH ×2 (18:30→23:20)
[2018-12-20 18:41] LABS: HEMATOCRIT 35.7 % (42.0-52.0); HEMOGLOBIN 12.2 g/dL (14.0-18.0)
[2018-12-20] MEDS: NORVASC PO SCH (19:15)
[2018-12-20] MEDS: MIRALAX PO SCH (23:19)
[2018-12-21] MEDS: PROTONIX 80 MG in NS 80 ML IV SCH ×3 (00:04→19:41)
[2018-12-21 00:36] LABS: HEMATOCRIT 34.9 % (42.0-52.0); HEMOGLOBIN 11.5 g/dL (14.0-18.0)
[2018-12-21] MEDS: NS 1,000 ML IV SCH ×2 (05:48→19:42)
[2018-12-21 06:18] LABS: BASO# 0.02 X1000 (0.0-0.2); BASO% 0.3 % (0.0-0.8); EOS# 0.56 X1000 (0.0-0.7); EOS% 8.9 % (0.0-10.0); HEMATOCRIT 33.2 % (42.0-52.0); HEMOGLOBIN 10.8 g/dL (14.0-18.0); LYMPH# 1.27 X1000 (1.2-3.4); LYMPH% 20.1 % (20.5-51.1); MCHC 32.5 g/dL (33-37); MCV 95.4 FL (81-99); MONO# 0.49 X1000 (0.11-0.59); MONO% 7.8 % (1.7-9.3); MPV 9.2 FL (7.4-10.4); NEUT# 3.98 X1000 (1.4-6.5); NEUT% 62.9 % (42.2-75.2); PLT 231 X1000 (130-400); RBC 3.48 XMIL (4.7-6.1); RDW 15.1 % (11.5-14.5); WBC 6.32 X1000 (4.8-10.8)
[2018-12-21 06:38] LABS: AGAP 11; BUN 9 mg/dL (8-22); CALCIUM 8.3 mg/dL (8.8-10.2); CHLORIDE 110 mmol/L (98-107); COSMO 281; CREATININE 0.9 mg/dL (0.7-1.2); ESTIMATED GFR > 60; GLUCOSE 116 mg/dL (70-104); POTASSIUM 3.9 mmol/L (3.5-5.1); SODIUM 141 mmol/L (136-145); TCO2 20 mmol/L (25-35)
[2018-12-21] MEDS: COZAAR PO SCH (09:27)
[2018-12-21] MEDS: NORVASC PO SCH (09:27)
[2018-12-21] MEDS: MIRALAX PO SCH ×2 (10:31→20:56)
[2018-12-21] MEDS: LACTULOSE PO SCH ×2 (10:31→20:56)
--- NOTE | 2018-12-21 17:56 | PROGRESS NOTE ---
DATE: 12/21/2018 SUBJECTIVE: Patient was sent over here from [place]. He is a patient of Dr. Jay Weiss. A 78-year-old who had some rectal bleeding and some issues with compliance. Unfortunately, I think he says he is eating some seeds and some other things. He has had I think history of diverticular bleed in the past. It sounds like he has some constipation. In the ER, noted to have black and tarry stool consistent with melena. PAST MEDICAL HISTORY: Includes: 1. Hypertension. 2. Severe dilated diverticulosis. 3. Prostate cancer. 4. History of cerebrovascular accident. 5. Hypertension. 6. Denies any diabetes or cardiac disease. PAST SURGICAL HISTORY: 1. He has had a hernia repair. 2. Foot surgery. 3. Prostatectomy. DIAGNOSTIC STUDIES: His hematocrit stable. He came in at 36. It has dropped down a little bit to 33. He came in yesterday. His chemistry is unremarkable. ASSESSMENT AND PLAN: 1. Gastrointestinal bleed, suspect lower gastrointestinal (GI) bleed, but it could be upper with his melena. We will continue his proton pump inhibitor and continue to check hemoglobin and hematocrit q.6 h. Gastroenterology to see. 2. Hypertension. We will follow. 3. Diverticulosis. Aware. 4. Blood loss anemia. 5. Review of his orders. He is on Norvasc 10 mg a day, hydralazine 10 mg IV q.6 h. p.r.n. blood pressure elevation, lactulose 30 mL b.i.d., Cozaar 50 mg a day, normal saline at 100 mL an hour, Protonix 80 mg IV (he is getting IV drip Protonix), polyethylene glycol [address] Subramanian is consulted. cc: Francis David MD
--- NOTE | 2018-12-21 23:28 | GASTROENTEROLOGY CONSULTATION ---
DATE: 12/21/2018 REASON FOR CONSULTATION: Rectal bleeding, hematochezia. HISTORY OF PRESENT ILLNESS: Mr. Phill Dennison is a 78-year-old gentleman with past medical history of hypertension, prostate cancer, B12 deficiency, diverticulosis and history of lower GI bleeding secondary to diverticula. He presents with 1 day of bright red blood per rectum. The patient reports having at least 3 bowel movements the day prior to admission, with bright red blood. He denies any abdominal pain, nausea, vomiting, fevers, chest pain or shortness of breath. He does report some mild associated lightheadedness. He is on aspirin 81 mg once a day. No NSAIDs. No weight loss or change in bowel habits. He has had 2 similar episodes in the past attributed to diverticular bleeding. He had an EGD and colonoscopy in 07/2017 that showed Schatzki ring, gastritis, melton-diverticulosis, hemorrhoids and 2 small polyps. REVIEW OF SYSTEMS: As per HPI, otherwise 12-point review of systems negative. PAST MEDICAL HISTORY: Hypertension, prostate cancer, B12 deficiency, diverticulosis, history of lower GI bleeding secondary to diverticula, colon polyps, Schatzki ring, history of gastritis. PAST SURGICAL HISTORY: Hernia repair, removal of skin lesion on the left hip, prostatectomy. MEDICATIONS: Aspirin, B12, losartan, Norvasc. ALLERGIES: No known drug allergies. SOCIAL HISTORY: Rbi-lcyv-krfc-per-day smoker. Social alcohol. No drug use. FAMILY HISTORY: No family history of GI malignancies. PHYSICAL EXAMINATION: Temperature 98.1 degrees, heart rate 86, respiratory rate 20, blood pressure 140/71, O2 saturation 99% on room air. Generally the patient is awake, alert, oriented, in no acute distress. HEENT: Sclerae anicteric. Moist mucous membranes. Neck supple. No JVD. Cardiac: Regular rate and rhythm. No murmurs. Lungs clear to auscultation bilaterally. No wheezing, rales or rhonchi. Abdomen soft, nontender, nondistended. Normoactive bowel sounds. No rebound or guarding. Extremities: No clubbing, cyanosis, or edema. Neurologic nonfocal. LABORATORY DATA: White count of 6.3, 14.1 in 10/2018, MCV 95, platelets 231,000. INR 0.99. Sodium 141, potassium 2.9, chloride 110, bicarbonate 20, BUN 9, creatinine 0.9, glucose 116. LFTs are normal. DIAGNOSTIC DATA: KUB shows mild to moderate constipation. ASSESSMENT AND PLAN: 1. Mr. Phill Dennison is a 78-year-old gentleman with past medical history significant for recurrent diverticular bleeding and lower gastrointestinal bleeding, likely secondary to diverticulosis. He reports 2 similar episodes in the past requiring colonoscopy. He is on aspirin 81 mg daily. No nonsteroidal anti-inflammatory drugs. Blood in the toilet seen by myself is bright red blood. No evidence of melena to suggest upper gastrointestinal source. He remains hemodynamically stable. He is currently on a proton pump inhibitor drip and bowel regimen for lower gastrointestinal bleeding. We will hold bowel regimen as well as proton pump inhibitor drip. We will start the patient on clear liquid diet. Trend his hemoglobin and hematocrit q.6-8 hours. Transfuse as needed to maintain hemoglobin between 7 and 8. Maintain 2 large-bore peripheral intravenous lines. Hold aspirin. SCDs for deep venous thrombosis prophylaxis. Intravenous fluids for fluid resuscitation. 2. Anemia. Plan as above. 3. Diverticulosis. This is the patient's third episode of diverticular bleeding. He has not had any issues for the last couple of years. We will hold off on surgical evaluation at this time, given melton-diverticulosis which will require probable total colectomy. 4. Hypertension, stable. We will follow with you. Please call with any questions or concerns. JANESSA
[2018-12-22] MEDS: NS 1,000 ML IV SCH ×2 (05:09→16:12)
[2018-12-22] MEDS: MIRALAX PO SCH ×2 (09:18→21:31)
[2018-12-22] MEDS: COZAAR PO SCH (09:18)
[2018-12-22] MEDS: NORVASC PO SCH (09:18)
[2018-12-22] MEDS ORDERED: SODIUM CHLORIDE 0.9% INJ SCH (09:45)
--- NOTE | 2018-12-22 13:09 | GASTROENTEROLOGY CONSULTATION ---
DATE: 12/22/2018 SUBJECTIVE: The patient is resting in bed. His is present at bedside. The patient denies any abdominal pain. He had 1 formed stool today, no blood. He was able to eat his meal today. Denies any fevers, rigors, or chills. OBJECTIVE: Vital signs: Temperature 97.6 degrees, pulse of 78, respiratory rate 17, blood pressure 163/94, saturating 98% on room air. Body weight of 197 pounds 8 ounces. BMI 29.2 kg. General: Moderately nourished, lying in bed, in no acute distress. HEENT: Pale. Conjunctivae with no icterus. Pupils equal and reactive to light. Neck: Supple. Abdomen: Soft. Nontender. Mild protuberance noted. No rebound or guarding. Extremities: No cyanosis or clubbing. Neurologic: Alert, awake and oriented. DIAGNOSTIC DATA: Hemoglobin 9.5 today. His platelet count yesterday was 231,000, white count of 6.3. Sodium 141, potassium 3.9, chloride 110, bicarb 20, anion gap 11, BUN of 9, creatinine 0.9, glucose of 116. Calcium is 8.3. Abdominal x-ray done on admission showed mild to moderate constipation. IMPRESSION: 1. Painless rectal bleeding, likely diverticular. 2. Constipation. 3. History of recurrent GI bleeding from diverticular and hemorrhoidal. 4. History of reflux disease. 5. History of colon polyps. RECOMMENDATIONS: 1. We will continue to watch his hemoglobin and hematocrit. 2. I will continue a clear liquid diet. 3. We will transfuse as needed. 4. The patient will continue on bowel regimen with MiraLAX and Dulcolax. 5. We will continue on Iron C b.i.d. and multivitamin once daily for anemia. 6. The patient will be on PPIs for GI prophylaxis. 7. The patient will follow up in the clinic in 4 weeks after discharge. 8. The patient is counseled to be compliant with MiraLAX at home and avoid excessive corn, nuts, and seeds in diet. Also discussed the possibility of doing subtotal colectomy if the patient continues to have recurrent GI bleeding. The patient and family will think about it and let us know. We may have to call General Surgery consult if the patient's family decides to seek surgical opinion. 9. The above plans were discussed with the patient and family and all questions answered. Please call with any other questions. cc: MD Francis Gan MD
[2018-12-22] MEDS: PROTONIX IV SCH (13:17)
--- NOTE | 2018-12-22 15:48 | PROGRESS NOTE ---
DATE: 12/22/2018 SUBJECTIVE: He is not having any more bleeding. He is comfortable. He has been eating. Remains afebrile. His abdomen has no tenderness or pain. OBJECTIVE: Vital signs: Temp 97.8 degrees, pulse 80, respirations 19, blood pressure 134/70. HEENT: Pupils are equal and round. Neck: No distended neck veins. Lungs: Clear in all lung cesar. Cardiovascular: Regular rhythm and rate without murmur or S3. Urine output is 5000 mL. ASSESSMENT AND PLAN: 1. Painless rectal bleeding, likely diverticular with some constipation. He has had recurrent GI bleeding from diverticular bleed and hemorrhoid bleed in the past, history of reflux disease and history of colon polyps. Continue to follow his hemoglobin and hematocrit which remain stable. Continue his iron plus C twice a day, his bowel regimen of MiraLAX and Dulcolax. Hopefully he can go home tomorrow. He will continue to be on PPIs. He was instructed to be compliant his MiraLAX and avoid excess corn, nuts, and seeds in diet. Discussed the possibility doing a subtotal colectomy if the patient continues to have recurrent bleeding. So, we will see how we do and he may get to go home tomorrow. 2. Hypertension, controlled. 3. Blood loss anemia, which is mild. Hemoglobin is 9.3, hematocrit 33. cc: Francis David MD
[2018-12-22] MEDS ORDERED: DULCOLAX PR SCH (21:00)
[2018-12-22] MEDS: ICAR-C PO SCH (21:31)
[2018-12-23] MEDS: NS 1,000 ML IV SCH (03:50)
[2018-12-23 07:43] VITALS: BP 155/77
[2018-12-23] MEDS: ICAR-C PO SCH (08:17)
[2018-12-23] MEDS: COZAAR PO SCH (08:18)
[2018-12-23] MEDS: MIRALAX PO SCH (08:18)
[2018-12-23] MEDS: NORVASC PO SCH (08:18)
[2018-12-23] MEDS: PROTONIX IV SCH (08:18)
[2018-12-23] MEDS ORDERED: CENTRUM SILVER PO SCH (09:00)
--- NOTE | 2018-12-23 10:44 | PROVIDER PROGRESS NOTE ---
Progress Note SUBJECTIVE: No acute overnight events. No N/V/F, CP, SOB, abdominal pain. Patient reports last BM yesterday with liquid stool without blood. OBJECTIVE: Last Vital Signs Temp 98.0 F 12/23/18 07:42 Pulse 75 12/23/18 07:42 Resp 16 12/23/18 07:42 BP 155/77 12/23/18 07:42 Pulse Ox 99 12/23/18 07:42 Height 5 ft 9 in Weight 197 lb 8 oz GEN: awake, alert, NAD HEENT: anicteric, MMM NECK: supple, no jvd CV: RRR, no murmurs PULM: CTAB, no wheezing ABD: soft, NT/ND, NABS EXT: no cce NEURO: nonfocal LABS: 12/22/18 12/23/18 05:45 05:43 Hgb 9.5 L 8.9 L A/P: Mr. Phill Dennison is a 78-year-old gentleman with past medical history significant for recurrent diverticular bleeding. No further bleeding. Hgb appears to be nadiring. Last BM was nonbloody. VSS. # Diverticular bleed: resolved; stable for discharge from GI perspective; would recommend holding aspirin given bleeding risk # Anemia: Plan as above # Diverticulosis: high fiber diet # Hypertension, stable OK to discharge from GI perspective. Will sign off. Please call with questions. Follow-up with Dr. Gilmore in 2-4 weeks
--- NOTE | 2018-12-23 10:51 | DISCHARGE SUMMARY ---
ADMISSION DATE: 12/20/2018 DISCHARGE DATE: 12/23/2018 HISTORY: His doctor is Dr. Weiss. He came in with rectal bleeding and hematochezia. A 78-year- old with history of hypertension. He had some issues with compliance apparently by report in the past. He came in with some rectal pain somewhat. It sounds like he had trouble with constipation. Since that time, he has had 3 or 4 bowel movements that have had some blood in them, hematochezia, and then some maroon appearing stools so he presented to the emergency room. No abdominal pain or rectal pain at that time. PAST MEDICAL HISTORY: 1. Hypertension. 2. Prostate cancer. 3. History of cerebrovascular accident. 4. Hypertension. 5. Diabetes mellitus. He denied any sugar issues or diabetes mellitus. PAST SURGICAL HISTORY: He has had hernia repair. He has had foot surgery. He is status post prostatectomy. HOSPITAL COURSE: A lower GI bleed, he was admitted and GI followed. He admitted that he has not been very compliant to low seed diverticular diet. His bleeding has subsided. GI saw him Dr. Subramanian. He had painless rectal bleeding, likely diverticular or constipation. His bowels are moving, and they wanted to postpone colonoscopy. The possibility of a subtotal colectomy was entertained if he continues to have bleeding, but they put him on MiraLAX. They want him to avoid corn, nuts, and seeds in his diet. He was anxious to go home. We will discharge him home on his Norvasc 10 mg a day, Icar C one twice a day, Cozaar 50 mg a day, Centrum Silver 1 a day, MiraLAX 17 g b.i.d. I will put him on Protonix 40 mg once a day. Follow up with his primary care. Follow up with GI. cc: Francis David MD
== END 2018-12-23 11:03 | disposition home or self-care (01) | DRG 378 ==
LOC: P.ED 09:21 → P.EDIPHOLD 12:15 → 4N 22:48
PROVIDERS: ATTEND Emergency Medicine
CPT/HCPCS: 74022; 80048; 80053; 82270; 85014; 85018; 85025; 85610; 85730; 86850; 86900; 86901; 96365; 96366; 96375; 96376; 99284; A9270; C9113; J0360; J7030; S0164

== ENCOUNTER 2019-10-12 06:56 | Inpatient (IN) ==
[2019-10-12] MEDS ORDERED: NS 1,000 ML IV ONE (07:16)
--- NOTE | 2019-10-12 07:50 | PROVIDER DOCUMENTATION ---
HPI-Abdominal Pain/GI Problem - General Chief Complaint: Rectal Bleeding Stated Complaint: WEAK / SWEATS Time Seen by Provider: 10/12/19 07:15 Allergies/Adverse Reactions: Patient Allergies Allergy/AdvReac Type Severity Reaction Status Date / Time No Known Allergies Allergy Verified 10/12/19 07:05 - History of Present Illness-ABD Nature of Presenting Problems: A 79 y/o male presents with c/o bleeding in his stools since last night. As per the pt he was constipated, took some laxatives and started having loose BM's since 1 am. Also had bloos in it. Feeling dizzy. Denies any CP or SOB. Pt has hx of prostate cancer. Review of Systems - Adult - REVIEW OF SYSTEMS - ADULT Constitutional: reports: no symptoms reported Eyes: denies: no symptoms reported Ears, Nose, Mouth & Throat: denies: no symptoms reported Cardiovascular: reports: other (Lightheaded) Respiratory: denies: no symptoms reported Gastrointestinal: reports: see HPI Genitourinary: reports: see HPI Musculoskeletal: denies: no symptoms reported Integumentary: denies: no symptoms reported Neurological: reports: dizziness/vertigo Psychiatric: denies: no symptoms reported Endocrine: denies: no symptoms reported Hematologic/Lymphatic: denies: no symptoms reported Allergic/Immunologic: denies: no symptoms reported Past History - Adult - PAST MEDICAL HISTORY-ADULT Review of Records: reports: Nursing Assessment Review, Medications Reviewed, Social history reviewed & non-contributory. Major Childhood Illnesses: reports: denies history Cardiovascular: reports: HTN Respiratory: reports: denies history Gastrointestinal: reports: GI bleed, polyps Obstetrical/Gynecological: reports: denies history Genitourinary: reports: prostate cancer, other (bph) Musculoskeletal: reports: denies history Neurological: reports: CVA Psychiatric: reports: denies history Endocrine/Immune: reports: denies history Other Conditions: reports: denies history - PRIOR SURGERIES/PROCEDURES Surgical/Procedure History: reports: hernia repair, orthopedic (extremity) (foot surgery), other (stomach tumor right great toe bunion removal) - PRIOR HOSPITALIZATIONS Prior Hospitalizations: reports: none - IMMUNIZATION STATUS Childhood Immunizations: See Nurse Assessment Flu Vaccine: See Nurse Assessment - FAMILY HISTORY Family History: reviewed, not pertinent Physical Exam-General - PHYSICAL EXAM-ADULT Initial Vital Signs Reviewed: Yes - CONSTITUTIONAL General Appearance: alert, no apparent distress - EYES Eyes: PERRL/EOMI, pale conjunctivae - HEAD, EARS, NOSE, MOUTH & THROAT HENMT: normocephalic/atraumatic, moist mucous membranes, pharynx normal - NECK Neck: supple - RESPIRATORY Respiratory: lungs clear, normal breath sounds, no respiratory distress, no accessory muscle use - CARDIOVASCULAR Cardiovascular: regular rate, rhythm, no murmur - GASTROINTESTINAL (ABDOMEN) Abdominal Exam: non tender, soft - MUSCULOSKELETAL Back Exam: no vertebral tenderness Extremity: no pedal edema - SKIN Integumentary: normal color, warm/dry, pallor - NEUROLOGIC Neurologic: grossly normal - PSYCHIATRIC Psych/Mental Status: normal mood/affect, oriented x 3 Progress - PLAN OF CARE/RESULTS Progress/Plan/Lab Results: Vital Signs - 8 hr 10/12/19 07:02 10/12/19 07:25 Temperature 97.3 F L Pulse Rate 79 Pulse Rate [Supine] 66 Respiratory Rate 18 Blood Pressure 124/78 Blood Pressure [Supine] 83/55 O2 Sat by Pulse Oximetry 96 Orders Category Date Time Status ED: Orthostatic Vital Signs (E DIRECTED Care 10/12/19 07:16 Active Nursing- Obtain EKG ONCE Care 10/12/19 07:16 Active CBC WITH ELECTRONIC DIFF [HEME] Stat Lab 10/12/19 07:15 Ordered COMPREHENSIVE METABOLIC PANEL [CHEM] Stat Lab 10/12/19 07:16 Ordered OCCULT BLOOD SCREEN STOOL PL Stat Lab 10/12/19 07:16 Uncollected TROPONIN T Stat Lab 10/12/19 07:16 Ordered TYPE & SCREEN [BBK] Stat Lab 10/12/19 07:16 Ordered 0.9% Sodium Chloride Inj [Ns] 1,000 ml Med 10/12/19 07:16 Active IV 999 mls/hr Result Diagrams: 10/12/19 07:37 10/12/19 07:37 - REASSESSMENT Reassessment #1 Time Reassessed: 07:45 Status: other (Pt became symptomatic when trying to sit for orthostatics, symptoms better afetr IVF's and tredlenberg position.) Reassessment #2 Time Reassessed: 11:00 Status: improving (stable, rectal exam reveals bright blood on the gloves with some dark stool.) - CONSULTS/PCP/HOSPITALIST Notification #1 *Consult/PCP/Hospitalist*: dr goodwin Time Discussed: 12:14 Consult Disposition: Admit (recommended to transfer to [facility] and GI consult.) Departure - Departure Date of Disposition Decision: 10/12/19 Time of Disposition Decision: 11:20 DIAGNOSIS: Lower GI bleed Disposition: ADMITTED INPATIENT 09 Certified Medical Emergency: Emergent Condition: Stable Referrals and Follow-Ups: Jay Goodwin MD [Primary Care Provider] - - Critical Care Note This patient required my direct & personal management of CC.: No Attestation - Physician/ DIANA Attestation Patient care was provided by Advanced Practice Provider:: No The physician spent face to face time with patient:: Yes Advanced Practice Provider documentation review:: Supervising physician onsite and consulted in the evaluation and care of this patient. The physician did have a face to face encounter with the patient.
[2019-10-12 07:57] LABS: BASO# 0.02 X1000 (0.0-0.2); BASO% 0.3 % (0.0-0.8); EOS# 0.75 X1000 (0.0-0.7); EOS% 9.5 % (0.0-10.0); HEMATOCRIT 34.5 % (42.0-52.0); HEMOGLOBIN 11.1 g/dL (14.0-18.0); IMM GRAN# 0.02 X1000 (0.0-0.04); IMM GRAN% 0.3 % (0.0-0.5); LYMPH# 1.68 X1000 (1.2-3.4); LYMPH% 21.2 % (20.5-51.1); MCH 30.2 PG (27-31); MCHC 32.2 g/dL (33-37); MCV 93.8 FL (81-99); MONO# 0.74 X1000 (0.11-0.59); MONO% 9.3 % (1.7-9.3); MPV 8.8 FL (7.4-10.4); NEUT# 4.72 X1000 (1.4-6.5); NEUT% 59.4 % (42.2-75.2); PLT 260 X1000 (130-400); RBC 3.68 XMIL (4.7-6.1); RDW 13.3 % (11.5-14.5); WBC 7.93 X1000 (4.8-10.8)
[2019-10-12 08:26] LABS: AGAP 12; ALBUMIN 3.9 g/dL (3.5-5.0); ALKALINE PHOSPHATASE 41 U/L (32-122); BUN 14 mg/dL (8-22); CALCIUM 8.8 mg/dL (8.8-10.2); CHLORIDE 104 mmol/L (98-107); COSMO 279; ESTIMATED GFR > 60; GLUCOSE 146 mg/dL (70-104); GOT 13 U/L (10-34); GPT 7 U/L (10-44); POTASSIUM 4.2 mmol/L (3.5-5.1); SODIUM 138 mmol/L (136-145); TCO2 22 mmol/L (25-35); TOTAL PROTEIN 6.1 g/dL (6.3-8.3)
[2019-10-12 11:25] LABS: OCCULT BLOOD 1 NEGATIVE (NEGATIVE)
--- NOTE | 2019-10-12 13:13 | HISTORY AND PHYSICAL ---
PRIMARY CARE PHYSICIAN: Dr. Weiss. CHIEF COMPLAINT: Rectal bleeding that began around 1 a.m. this morning, with dizziness and lightheadedness noted. HISTORY OF PRESENTING ILLNESS: This is an 79-year-old male who presents to [facility] ER with complaints of having blood in his stools around 1 a.m. this morning. States that he was constipated and took some laxatives, then started having some loose BMs, and noted some bright red blood in the commode. Stated he felt dizzy and lightheaded as well. His workup showed a stool that was negative for occult blood, but it is noted that the ER physician noted kris blood on his glove when he did his rectal exam. His hemoglobin and hematocrit are 11.1 and 34.5. He did have one blood pressure reading that was low at 83/55, but currently he is at 124/74, and did receive a liter bolus of normal saline in the emergency room, so he will be admitted to the [facility] PVC unit for further evaluation and treatment. PAST MEDICAL HISTORY: Hypertension, prostate cancer, CVA. PAST SURGICAL HISTORY: Hernia, foot surgery, and a prostatectomy. FAMILY HISTORY: Reviewed and noncontributory. SOCIAL HISTORY: Currently lives with family. Smokes about a half a pack of cigarettes a day and has done so for the past 40+ years. Denies any alcohol or illicit drug use. ALLERGIES: He has no known drug allergies. HOME MEDICATIONS: Will need to obtain a current list of his home medications, reconcile, review, and restart as appropriate. Will place an order for nursing to update and confirm home medications. LABORATORY DATA: White blood cell count of 7.93, hemoglobin 11.1, hematocrit 34.5, platelets 260,000. Sodium 138, potassium 4.2, chloride 104, CO2 of 22, BUN of 14, creatinine of 1, glucose 146. Troponin of less than 0.010. Stool for occult blood was negative. REVIEW OF SYSTEMS: He denied any fever, chills, blurred vision. He did have some dizziness and lightheadedness. Denied any chest pain, coughing, shortness of breath. Denied any abdominal pain, nausea, vomiting. He did have some constipation, and then had some rectal bleeding associated with the constipation that was bright red. Denied any diarrhea or burning or hurting with urination. PHYSICAL EXAMINATION: VITAL SIGNS: On arrival, he had a temperature of 97.3 degrees, pulse 79, respirations 18, blood pressure 124/78. He did drop his pressure about 30 minutes after arrival to 83/55 lying. It is currently up to 124/74. GENERAL: This is an 79-year-old, male, who is lying in the bed and answers questions appropriately. HEENT: Normocephalic, atraumatic. Normal ENT inspection. Oropharynx and nares are clear. Eyes: Pupils are equal, round, and reactive to light and accommodation. Extraocular movements are intact. NECK: Normal inspection. Normal range of motion. LUNGS: Clear to auscultation bilaterally with equal lung expansion and chest wall movement. HEART: Regular rate and rhythm. No murmurs, rubs, or gallops. ABDOMEN: Soft, nontender, nondistended. Bowel sounds are present x4 quadrants. MUSCULOSKELETAL: He has 5/5 strength x4 extremities. NEUROLOGICAL: Cranial nerves II through XII are grossly intact. ASSESSMENT: 1. Gastrointestinal bleed. 2. Hypotension. 3. Tobacco abuse. 4. History of prostate cancer. PLAN: He will be admitted to the PVC unit at [facility], placed on clear liquid diet, n.p.o. after midnight. Will consult GI. Update and confirm home medications. Place on SCDs for DVT prophylaxis. Place on normal saline at 75 mL an hour, Protonix 40 mg IV every 24 hours, Zofran 4 mg IV every 4 hours p.r.n. Recheck a CBC and BMP in the a.m. Further orders after seen by attending and by configuration consultant. Dictated by LEATHA Rankin for Nickolas Fuentes MD cc: LEATHA Rankin MD Michael Putman, MD
--- NOTE | 2019-10-12 13:32 | EKG Report ---
Test Performed on : 10/12/2019 07:35:23 AM Test Reason : ER Blood Pressure : / mmHG Vent. Rate : 061 BPM Atrial Rate : 061 BPM P-R Int : 174 ms QRS Dur : 080 ms QT Int : 442 ms P-R-T Axes : 052 028 268 degrees QTc Int : 444 ms Normal sinus rhythm. Left ventricular hypertrophy with repolarization abnormality Abnormal ECG When compared with ECG of 26-SEP-2019 15:30, (Unconfirmed) No significant change was found Unconfirmed Result
--- NOTE | 2019-10-12 14:22 | HISTORY AND PHYSICAL ---
ADDENDUM REPORT: The patient came in today with rectal bleeding. He has had issues with GI bleed before. Workup in the ER revealed gross hematochezia, although his Hemoccult test was negative. His hemoglobin and hematocrit are a bit low, although he has been anemic before at 11 and 34. After discussion with his primary care, he preferred transferring him to [facility] for GI evaluation. The patient will be admitted, IV fluids, serial hemoglobin and hematocrit, hold antiplatelet therapy. He does take aspirin about 325 daily and await GI recommendations. His abdominal exam is really benign. This is a patient Dr. Silva, seen in conjunction with Myrtle Rosario. cc: Nickolas Fuentes MD
[2019-10-12] MEDS ORDERED: TYLENOL PO PRN (14:31)
[2019-10-12] MEDS ORDERED: ZOFRAN IV PRN (14:31)
[2019-10-12] MEDS ORDERED: SODIUM CHLORIDE 0.9% INJ SCH (14:31)
[2019-10-12] MEDS ORDERED: PROTONIX IV SCH (15:00)
[2019-10-12] MEDS: NS 1,000 ML IV SCH (15:06)
[2019-10-13] MEDS: NS 1,000 ML IV SCH ×2 (04:42→18:09)
[2019-10-13 06:04] LABS: BASO# 0.02 X1000 (0.0-0.2); BASO% 0.3 % (0.0-0.8); EOS# 0.58 X1000 (0.0-0.7); EOS% 9.2 % (0.0-10.0); HEMATOCRIT 30.3 % (42.0-52.0); LYMPH# 1.53 X1000 (1.2-3.4); LYMPH% 24.3 % (20.5-51.1); MCH 31.5 PG (27-31); MCV 95.6 FL (81-99); MONO# 0.44 X1000 (0.11-0.59); MPV 8.8 FL (7.4-10.4); NEUT# 3.72 X1000 (1.4-6.5); NEUT% 59.2 % (42.2-75.2); PLT 221 X1000 (130-400); RBC 3.17 XMIL (4.7-6.1); RDW 13.1 % (11.5-14.5); WBC 6.29 X1000 (4.8-10.8)
[2019-10-13 06:34] LABS: AGAP 12; BUN 10 mg/dL (8-22); CALCIUM 8.2 mg/dL (8.8-10.2); CHLORIDE 105 mmol/L (98-107); COSMO 277; ESTIMATED GFR > 60; GLUCOSE 111 mg/dL (70-104); SODIUM 139 mmol/L (136-145); TCO2 22 mmol/L (25-35)
--- NOTE | 2019-10-13 14:54 | GASTROENTEROLOGY CONSULTATION ---
DATE: 10/13/2019 REASON FOR CONSULT: GI bleed. HISTORY OF PRESENT ILLNESS: Mr. Dennison is an 79-year-old, -[place] male, with a history of hypertension, prostate cancer and B12 deficiency, who came to the hospital yesterday morning. He had been to [facility] with complaints of blood in the stools. The patient mentioned that he does have constipation and has to take laxatives all the time. He did not have a bowel movement for the 3 days, and so he took the laxative. Once he took the laxative, he started having bowel movements and had almost 5 bowel movements. He mentioned that yesterday, he noticed that there was blood in his stools which was bright red. Patient mentioned feeling weak, dizzy, and he passed out at the hospital. The patient's hemoglobin and hematocrit on admission were 11.1 and 34.5. Today, his hemoglobin and hematocrit are 10.0 and 30.3. An occult blood test showed that his stool for occult blood was negative but the ER physician noted some kris blood when he did the rectal exam. The patient also mentioned that when he was in the ER, his blood pressure was low and he received 1 L bolus of normal saline. The patient had an EGD and a colonoscopy done on 07/16/2017, by Dr. Subramanian at the outpatient surgery center. His EGD showed he had Schatzki ring at the GE junction and it was dilated. Nonerosive gastritis was found in the antrum and the body of the stomach. Two biopsies were taken. Normal cardia, fundus, and incisura. Normal duodenal bulb and second portion of the duodenum. He did have moderately severe diverticulosis in the cecum, ascending colon, hepatic flexure, transverse colon, splenic flexure, descending colon, sigmoid colon, and rectosigmoid junction. Internal grade 2 hemorrhoids were found in the anus. A single polyp was found in the transverse colon which was removed. A single sessile polyp was found in the descending colon which was removed and there was stool in the colon. The random biopsy of the stomach showed, he had chronic superficial gastritis without hemorrhage and it was negative for H pylori bacteria. The transverse colon polyp biopsy showed sessile tubular adenoma with moderate chronic inflammation and no high-grade dysplasia or neoplasia was noted. The descending colon polyp biopsy showed sessile tubular adenoma and no high-grade dysplasia or neoplasia was noted. The patient currently has denied noticing any more bleeding episodes. The patient did mention that he had prostate cancer with chemotherapy, it has been five years now and he sees Dr. Rosenberg. On admission to the [facility], patient complained that he was having nausea, but now he has denied any nausea or vomiting. He is on a clear liquid diet and he is able to tolerate his diet well. PAST MEDICAL HISTORY: Hypertension, prostate cancer, B12 deficiency, diverticulosis, history of lower GI bleed secondary to diverticula, colon polyps, Schatzki ring, and gastritis. PAST SURGICAL HISTORY: Hernia repair, removal of skin lesion from the left hip, prostatectomy, and right foot surgery. SOCIAL HISTORY: The patient is , has two kids. He smokes at least half a pack of cigarettes daily. Consumes alcohol occasionally. He has denied any illicit drugs. ALLERGIES: No known drug allergies. FAMILY HISTORY: No significant GI malignancies. REVIEW OF SYSTEMS: As per HPI. Otherwise, 12-point review of systems is negative. PHYSICAL EXAMINATION: Vital Signs: Temperature 97.9 degrees, pulse is 64, respirations 12, blood pressure 131/76, oxygen saturation 100% on room air. The patient's weight is 191 pounds. BMI is 29.1 kg/m2. General: Alert, oriented x3, in no acute distress. Answering questions appropriately. HEENT: Pale conjunctivae. No icterus. PERRL. Neck: Supple. Lungs: Clear to auscultation in the anterior cesar. Cardiovascular: Regular rate and rhythm. Abdomen: Soft, nontender, nondistended. Active bowel sounds heard in all 4 quadrants. Extremities: No clubbing, no cyanosis, no edema. Pedal pulses 2+ present bilaterally. Neurologic: Alert, oriented x3. Nonfocal. Cranial nerves 2-12 grossly intact. LABORATORY DATA: WBCs of 6.29, RBCs 3.17, hemoglobin is 10.0, hematocrit is 30.3, platelet count is 221,000. Sodium 139, potassium 4.0, chloride is 105, carbon dioxide 22, anion gap is 12, BUN is 10, creatinine is 1.0, glucose is 111, calcium is 8.2. Stool occult blood was negative. IMPRESSION AND PLAN: Rectal bleeding that is diverticular Diverticulosis History of colon polyps History of gastritis History of Prostate cancer s/p chemotherapy Current smoker PLAN: Mr. Dennison is an 79-year-old, -[place] male, with a history of hypertension and prostate cancer. GI has been consulted for his rectal bleeding. The patient is currently receiving IV fluids normal saline at 75 mL/h. The patient has currently denied noticing any bleeding. His hemoglobin and hematocrit today are 10.0 and 30.3. We will continue to monitor the patient's hemoglobin and hematocrit. We will keep the patient on a clear liquid diet for now. If his hemoglobin and hematocrit start to drop below 7, we will transfuse per protocol with the goal of 7-8 g/dl. We will plan to do a colonoscopy if the patient's condition worsen. For now, we will continue to monitor the patient's H & H and follow the plan of care per PCP. This plan was discussed with Dr. Cason. Thank you for your consult. Please call us for any further questions or concerns. Dictated by LEATHA Schuler for Jay Cason MD Physician Attestation I have seen and examined the patient. I have discussed and reviewed the note by Bernie ZHANG and agree with findings and plan as documented. Presents with recurrent diverticular bleed that is resolved. Will treat supportively. Will hold off on diagnostic colonoscopy unless patient has recurrent bleeding. [facility]
--- NOTE | 2019-10-13 15:44 | PROGRESS NOTE ---
DATE: 10/13/2019 SUBJECTIVE: Mr. Dennison feels good. No further bleeding. He is very hungry. He is on liquids right now. He had some rectal bleeding and no pain. No fever. He does have a history of diverticulosis. Apparently, he had been constipated recently, got some relief and little bit of bleeding. OBJECTIVE: Vital Signs: Temperature 97.9 degrees, pulse 64, respirations 12, blood pressure 131/76. HEENT: Pupils are equal and round. Lungs: Clear in all lung cesar. Cardiovascular: Regular rhythm rate without murmur or S3. Abdomen: Soft. Skin: Warm and dry. LABORATORY DATA: CBC when he came in, white count was 7930, hematocrit 34, hemoglobin 11, platelet count 260,000. This morning, white count was 6290, hemoglobin was 10, hematocrit 30, platelet count 221,000. ASSESSMENT/PLAN: Electrolytes and renal function look good, so if his blood count is stable and no further bleeding, he will get to go home tomorrow. REVIEW OF HIS ORDERS: He is getting normal saline at 75 mL an hour. Looking at his blood pressures, they look good. We have held his hypertensive medicines. He was on Protonix 40 mg a day and we can continue that for now. cc: Francis David MD
[2019-10-14] MEDS: NS 1,000 ML IV SCH (07:20)
[2019-10-14 09:22] LABS: BASO# 0.01 X1000 (0.0-0.2); BASO% 0.2 % (0.0-0.8); EOS# 0.63 X1000 (0.0-0.7); EOS% 11.5 % (0.0-10.0); HEMATOCRIT 28.7 % (42.0-52.0); HEMOGLOBIN 9.2 g/dL (14.0-18.0); LYMPH# 1.24 X1000 (1.2-3.4); LYMPH% 22.6 % (20.5-51.1); MCH 30.7 PG (27-31); MCHC 32.1 g/dL (33-37); MCV 95.7 FL (81-99); MONO# 0.34 X1000 (0.11-0.59); MONO% 6.2 % (1.7-9.3); MPV 8.9 FL (7.4-10.4); NEUT# 3.26 X1000 (1.4-6.5); NEUT% 59.5 % (42.2-75.2); PLT 225 X1000 (130-400); RDW 12.9 % (11.5-14.5); WBC 5.48 X1000 (4.8-10.8)
[2019-10-14 12:47] VITALS: BP 150/74
--- NOTE | 2019-10-14 13:48 | DISCHARGE SUMMARY ---
ADMISSION DATE: 10/12/2019 DISCHARGE DATE: 10/14/2019 HISTORY AND HOSPITAL COURSE: Came in with rectal bleeding. He is a patient of Dr. Weiss. He reports that he had pretty bad constipation, took some laxative and finally got some relief and had some blood in the commode and made him dizzy and felt like he was going to pass out. History of hypertension, history of prostate cancer, history of CVA. Surgical history, he had a history of hernia repair, foot surgery and prostatectomy, so came in. We followed hematocrit and hemoglobin and GI was consulted, Dr. Cason saw. His hematocrit and hemoglobin remained stable. He had no further sign of bleeding. Gave him some fluids. Lab, electrolytes unremarkable. Acid- base status is good and his hematocrit stayed stable, it was 28 and 9.2. He wanted to go home on 10/14/2019, and I am going to put him on some iron and continue his home medications. MEDICATIONS: He is on hydrochlorothiazide 25 mg a day, Cozaar 100 mg daily, and Protonix 40 mg a day, and I will put him on Icar C 1 daily. FOLLOWUP: He is to follow up with his primary care physician. cc: Francis David MD
[2019-10-14] MEDS ORDERED: FLU VACCINE IM ONE (13:50)
== END 2019-10-14 14:06 | disposition home or self-care (01) | DRG 378 ==
LOC: P.ED 06:56 → P.EDIPHOLD 13:24 → SUATTDRO 13:24 → 2N 18:29
PROVIDERS: ATTEND Emergency Medicine